=== PATIENT | male | born 1935 | race Caucasian/White ===

== ENCOUNTER 2019-08-05 14:33 | Emergency (ER) | payer MEDICARE, BC ==
--- NOTE | 2019-08-05 14:41 | EDM.PDOC ---
ED HPI GENERAL MEDICAL PROBLEM - General Chief Complaint: Lower Extremity Injury/Pain Stated Complaint: left hip pain, fall at home Time Seen by Provider: 08/05/19 14:35 Source of Information: Reports: Patient, EMS, EMS Notes Reviewed, Old Records ( [facility] chart/EMR), Other ([facility]) History Limitations: Reports: No Limitations - History of Present Illness INITIAL COMMENTS - FREE TEXT/NARRATIVE: The patient was brought to the emergency room via ambulance with EMT accompaniment with no treatment in route. Note that the patient is certain that he tripped over a cord in his home at about 11:30 a.m. this morning, however refused transfer to this facility until this time. He has not taken any medications or treatment to this point for his symptoms.. Patient complains of 10/10 left hip pain with movement, however 3/10 at rest. He denies any head injury, syncopal episode, seizure activity, neck/back pain, loss of consciousness, change in mental status, neurological deficits, or other complaints or injuries. The patient denies any chest pain/pressure, heart flutter, dizziness, orthostasis, orthopnea, diaphoresis, paresthesias, recent decreased exercise tolerance, or any other anginal-type symptoms. No recent history of abdominal pain, heartburn, nausea, diarrhea, melena, gross hematochezia, or any food intolerance, including fatty foods, etc.. The patient also denies any recent fever, cough, wheezing, dyspnea, etc.. Onset: Today, Sudden Onset Date: 08/05/19 Onset Time: 11:30 Duration: Constant Location: Reports: Lower Extremity, Left. Denies: Head, Face, Neck, Chest, Abdomen, Back, Pelvis, Upper Extremity, Left, Upper Extremity, Right, Lower Extremity, Right, Radiates to Quality: Reports: Same as Previous Episode, Sharp Severity: Severe Improves with: Reports: Rest Worsens with: Reports: Movement Context: Reports: Trauma (As above) Associated Symptoms: Denies: Confusion, Chest Pain, Cough, Diaphoresis, Fever/ Chills, Headaches, Loss of Appetite, Malaise, Nausea/Vomiting, Seizure, Shortness of Breath, Syncope, Weakness Treatments TIE CARRIER: Reports: Other (see below) (None) Left Hip Pain Score (Numeric/FACES): 10 (As above) - Related Data Allergies Allergy/AdvReac Type Severity Reaction Status Date / Time latex Allergy Itching Verified 08/05/19 14:47 Home Meds: Home Meds Atenolol [Tenormin] 50 mg PO DAILY 01/30/15 [History] Lisinopril [Prinivil] 5 mg PO DAILY 01/30/15 [History] Simvastatin [Zocor] 40 mg PO BEDTIME 01/30/15 [History] Apixaban [Eliquis] 5 mg PO BID 08/05/19 [History] Aspirin [Ecotrin EC] 81 mg PO DAILY 08/05/19 [History] Cholecalciferol (Vitamin D3) [Vitamin D3] 2,000 unit PO DAILY 08/05/19 [History] Cyanocobalamin (Vitamin B12) [Vitamin B12] 1,000 mcg PO DAILY 08/05/19 [History] Fluticasone Propionate [Flonase] 1 spray LUDWIG BID 08/05/19 [History] LORazepam [Lorazepam] 1 mg PO BEDTIME 08/05/19 [History] Metoprolol Succinate 50 mg PO DAILY 08/05/19 [History] Tadalafil [Cialis] 20 mg PO ASDIRECTED 08/05/19 [History] methIMAzole [Methimazole] 5 mg PO DAILY 08/05/19 [History] Past Medical History HEENT History: Reports: Cataract, Hard of Hearing, Impaired Vision, Other (See Below) Other HEENT History: He wears glasses. Bilateral presbycusis with hearing aid therapy. Cardiovascular History: Reports: Afib, Aneurysm, Arrhythmia, CAD, Heart Murmur, High Cholesterol, Hypertension, [place], PTCA, PVD, Stents, Other (See Below). Denies: Blood Clots/VTE/DVT, Cardiomyopathy, Heart Failure, Syncope Other Cardiovascular History: Complete right bundle branch block, PACs, PVCs, and recurrent atrial fibrillation. Stable by multiple serial exams as below of an infrarenal 3 cm abdominal aortic aneurysm. Moderate bilateral peripheral vascular disease including 5070 percent bilateral deep femoral artery stenosis and 5069% moderate left-sided carotid occlusive disease. Mild aortic valve stenosis by clinical exam. Respiratory History: Reports: COPD, Intubation, Previous. Denies: Intubation, Difficult, Pneumothorax Gastrointestinal History: Reports: Diverticulosis Genitourinary History: Reports: BPH, Other (See Below) Other Genitourinary History: Bilateral renal cysts. Musculoskeletal History: Reports: Arthritis, Fracture, Osteoarthritis, Other ( See Below) Other Musculoskeletal History: Right hip fracture 10/21/1995 requiring surgery as below. Right elbow cubital tunnel syndrome. 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 Psychiatric History: Reports: Anxiety, Depression Endocrine/Metabolic History: Reports: Hyperthyroidism, Multinodular Thyroid, Other (See Below) Other Endocrine/Metabolic History: Hyperthyroidism with current medical therapy. - Past Surgical History Head Surgeries/Procedures: Reports: None HEENT Surgical History: Reports: Cataract Surgery, Oral Surgery, Other (See Below) Other HEENT Surgeries/Procedures: Complete teeth extraction with dentures uppers and lowers. Bilateral cataract surgery. Cardiovascular Surgical History: Reports: Coronary Artery Bypass, Coronary Artery Stent, Percutaneous Transluminal Angioplasty, Other (See Below). Denies : AAA Repair, Pacer Other Cardiovascular Surgeries/Procedures: Electrocardioversion on 02/06/15. Three-vessel CABG on 04/16/17 using internal mammary arteries. Previous PTCA/ stent 2 in 1995. Respiratory Surgical History: Reports: Thoracentesis, Other (See Below) Other Respiratory Surgeries/Procedures: Left Sided thoracentesis on 06/08/17. GI Surgical History: Reports: Appendectomy Musculoskeletal Surgical History: Reports: ORIF, Other (See Below) Other Musculoskeletal Surgeries/Procedures:: Right-sided ORIF in October 1995. Bilateral total knee arthroplasty in 1995. - Past Imaging History Past Imaging History: Reports: NICK Screen (12/05/17 and 06/08/17), Angiography ( Heart catheterization on 04/13/17), Cardiac Echo (04/24/17 with ejection fraction of 60% with previous evaluation on 04/13/17), Carotid US (Multiple carotid artery Doppler study evaluations last on 12/13/18 with results as above.) , CAT Scan (CT of the brain on 02/01/15, 03/01/07, and 11/22/06. CTA of the abdomen and pelvis on 12/05/17, 03/06/17, 02/05/15 and 07/30/14.), Event Monitor ( 03/08/15), MRI (Thoracic spine with contrast on 06/07/15 and 06/01/15. MRI of the brain on 01/01/07.), PFT (04/13/17normal), Stress Testing (Cardiolite stress test on 03/08/17 with ejection fraction of 70%.), Ultrasound (Multiple abdominal aortic ultrasounds with stable aneurysm as above with last evaluation on 12/13/18. Abdominal ultrasound on 08/27/09.), Other (See Below) (Bilateral arterial Doppler evaluation of the legs on 12/05/17 with left leg evaluation on 04/13/17.) Social & Family History - Tobacco Use Smoking Status *Q: Former Smoker Tobacco Use Within Last Twelve Months: Cigarettes Years of Tobacco use: 40 Packs/Tins Daily: 2 Used Tobacco, but Quit: No Month/Year Tobacco Last Used: 10/21/95 Smoking Cessation Information Provided To Patient: Yes Second Hand Smoke Exposure: No Second Hand Smoke Education Provided: No - Living Situation & Occupation Living situation: Reports: , with Family () Review of Systems - Review of Systems Review Of Systems: Comprehensive ROS is negative, except as noted in HPI. ED EXAM, GENERAL - Physical Exam Exam: See Below Exam Limited By: No Limitations General Appearance: Alert, WD/WN, No Apparent Distress Eye Exam: Bilateral Eye: EOMI, Normal Inspection (No nystagmus. Patient wearing glasses), PERRL Ears: Normal External Exam, Normal Canal, Normal TMs, Hearing Loss (Severe bilateral presbycusis with the patient not having his hearing aids today.) Nose: Normal Inspection, Normal Mucosa, No Blood Throat/Mouth: Normal Lips, Normal Gums, Normal Oropharynx, Normal Voice, No Airway Compromise. No: Normal Teeth (Complete dentures uppers and lowers), Dysphagia, Inflammation Head: Atraumatic, Normocephalic. No: Facial Swelling, Facial Tenderness, Sinus Tenderness Neck: Supple, Non-Tender, Full Range of Motion, Carotid Bruit (Mild bilateral carotid bruits versus transmitted heart sounds). No: Lymphadenopathy (L), Lymphadenopathy (R), Thyromegaly Respiratory/Chest: No Respiratory Distress, Lungs Clear, Normal Breath Sounds, No Accessory Muscle Use, Chest Non-Tender. No: Pleural Rub, Retractions Cardiovascular: Normal Peripheral Pulses, No Edema, No Gallop, No JVD, No Rub, Tachycardia, Systolic Murmur (Mild 1/6 GUNNAR of the aortic valve), Irregularly Irregular. No: Gallop/S3, Gallop/S4, Friction Rub Peripheral Pulses: 1+: Dorsalis Pedis (L), Dorsalis Pedis (R), 2+: Radial (L), Radial (R) GI/Abdominal: Normal Bowel Sounds, Soft, Non-Tender, No Organomegaly, No Distention, No Abnormal Bruit, No Mass, Pelvis Stable. No: Guarding (Male) Exam: Deferred Rectal (Males) Exam: Deferred Back Exam: Normal Inspection, Full Range of Motion. No: CVA Tenderness (L), CVA Tenderness (R), Muscle Spasm Extremities: No Pedal Edema, Normal Capillary Refill, Leg Pain (Left hip), Limited Range of Motion (Secondary to hip fracture and left leg), Other ( External rotation of the left leg). No: Rain's Sign Neurological: Alert, Oriented, CN II-XII Intact, Normal Cognition, Normal Gait, Normal Reflexes (Negative Babinski's), No Motor/Sensory Deficits Psychiatric: Normal Affect, Normal Mood Skin Exam: Warm, Dry, Intact, Normal Color, No Rash. No: Diaphoretic, Ecchymosis, Petechiae, Wound/Incision Lymphatic: No Adenopathy EKG INTERPRETATION EKG Date: 08/05/19 Time: 15:19 Rhythm: A-Fib Rate (Beats/Min): 103 Copen: Normal (Neutral) P-Wave: Variable QRS: RBBB (0.13 seconds) ST-T: Other (T-wave inversion in leads V1 and V3 with previous T-wave inversions in leads V1V2, however lead placement was confirmed today.) QT: Normal CO/PQ Interval: Variable; possible pulmonary hypertension by EKG Comparison: Change From Previous EKG (As above since 04/24/17 with normal sinus rhythm and PACs during that evaluation) EKG Interpretation Comments: 1. Recurrent atrial fibrillation with mild rapid ventricular response 2. Complete right bundle branch block 3. Questionable anterior wall cardiac ischemia-stable 4. Pulmonary hypertension by EKG Course - Vital Signs Last Recorded V/S: Last Vital Signs Temp 37.1 C 08/05/19 15:30 Pulse 98 08/05/19 16:00 Resp 18 08/05/19 16:00 BP 95/62 08/05/19 16:00 Pulse Ox 100 08/05/19 16:00 Vital Signs - 24 hr 08/05/19 08/05/19 08/05/19 14:56 15:00 15:13 Temperature [ 36.8 C 36.8 C Temporal] Pulse, 99 Peripheral Pulse, 115 H 108 H Peripheral [ Right Pulse Oximetry] Respiratory 20 20 Rate Blood Pressure 150/94 H Blood Pressure 133/82 150/94 H [Right Upper Arm] O2 Sat by Pulse 97 97 Oximetry O2 Sat by Pulse 97 Oximetry [Room Air] 08/05/19 08/05/19 15:30 16:00 Temperature [ 37.1 C Temporal] Pulse, Peripheral Pulse, 106 H 98 Peripheral [ Right Pulse Oximetry] Respiratory 20 18 Rate Blood Pressure Blood Pressure 135/76 95/62 [Right Upper Arm] O2 Sat by Pulse 98 100 Oximetry O2 Sat by Pulse Oximetry [Room Air] - Orders/Labs/Meds Orders: Active Orders 24 hr Category Date Time Status Cardiac Monitoring [RC] . DIRECTED Care 08/05/19 14:41 Active EKG Documentation Completion [RC] ASDIRECTED Care 08/05/19 14:56 Active Oxygen Therapy, ED [RC] CONTINUOUS Care 08/05/19 14:56 Active Peripheral IV Care [RC] . DIRECTED Care 08/05/19 14:44 Active Pulse Oximetry [RC] CONTINUOUS Care 08/05/19 14:56 Active Up With Assistance [RC] PFP Care 08/05/19 14:56 Active Vital Signs [RC] PFP Care 08/05/19 14:56 Active Nothing per Oral Now Diet [DIET] Diet 08/05/19 Breakfast Active Chest 1V Frontal [CR] Stat Exams 08/05/19 14:56 Taken Pelvis 1V or 2V [CR] Stat Exams 08/05/19 14:58 Taken FREE T3 [REF] Routine Lab 08/05/19 15:00 Received Lactated Ringers [Ringers, Lactated] 1,000 ml Med 08/05/19 16:00 Active IV ASDIRECTED Sodium Chloride 0.9% [Saline Flush] Med 08/05/19 14:43 Active 10 ml FLUSH ASDIRECTED PRN Obtain Past Medical Record [OM.PC] Routine Oth 08/05/19 14:41 Active Obtain Past Medical Record [OM.PC] Urgent Oth 08/05/19 14:56 Active Peripheral IV Insertion Adult [OM.PC] Routine Oth 08/05/19 14:43 Ordered Resuscitation Status Stat Resus Stat 08/05/19 14:56 Ordered Medication Orders Lactated Ringer's (Ringers, Lactated) 1,000 mls @ 70 mls/hr IV ASDIRECTED MERARY Last Admin: 08/05/19 16:10 Dose: 70 mls/hr Sodium Chloride (Saline Flush) 10 ml FLUSH ASDIRECTED PRN PRN Reason: Keep Vein Open Last Admin: 08/05/19 15:24 Dose: 10 ml Admin: 08/05/19 15:19 Dose: 10 ml Admin: 08/05/19 15:13 Dose: 10 ml Labs: Laboratory Tests 08/05/19 08/05/19 08/05/19 Range/Units 15:00 15:00 15:00 WBC 8.6 (4.0-10.2) K/uL RBC 3.92 L (4.33-5.41) M/uL Hgb 13.0 L (13.1-16.8) g/dL Hct 38.6 L (39.0-49.0) % MCV 98.5 H D (84.0-98.0) fL MCH 33.2 (28.2-33.3) pg MCHC 33.7 (31.7-36.0) g/dL RDW 12.8 (11.2-14.1) % Plt Count 168 (150-350) K/uL Neut % (Auto) 87.2 H (45.0-80.0) % Lymph % (Auto) 7.8 L (10.0-50.0) % Stanley % (Auto) 4.8 (2.0-14.0) % Eos % (Auto) 0.1 (0.0-5.0) % Baso % (Auto) 0.1 (0.0-2.0) % Neut # (Auto) 7.48 H (1.40-7.00) K/uL Lymph # (Auto) 0.67 (0.50-3.50) K/uL Stanley # (Auto) 0.41 (0.00-1.00) K/uL Eos # (Auto) 0.01 (0.00-0.50) K/uL Baso # (Auto) 0.01 (0.00-0.20) K/uL PT 12.4 H (9.5-12.0) SEC INR 1.2 APTT 25.6 (24.5-32.8) SEC Sodium 140 (136-145) mmol/L Potassium 4.1 (3.5-5.1) mmol/L Chloride 103 (98-107) mmol/L Carbon Dioxide 25.3 (21.0-32.0) mmol/L BUN 24 H (7-18) mg/dL Creatinine 1.11 (0.51-1.17) mg/dL Est Cr Clr Drug Dosing 51.15 mL/min Estimated GFR (MDRD) > 60 mL/min Glucose 184 H (74-106) mg/dL Lactic Acid (0.4-2.0) mmol/L Uric Acid 6.1 (2.6-7.2) mg/dL Calcium 9.0 (8.5-10.1) mg/dL Magnesium 1.9 (1.8-2.4) mg/dL Total Bilirubin 1.7 H (0.2-1.0) mg/dL Direct Bilirubin (0.0-0.2) mg/dL Indirect Bilirubin AST 21 (15-37) U/L ALT 22 (12-78) U/L Alkaline Phosphatase 70 (46-116) IU/L Creatine Kinase 92 (26-308) U/L Creatine Kinase Index 1.7 (0.0-2.5) % CK-MB (CK-2) 1.60 (0.00-3.60) ng/mL Troponin I 0.009 (0.000-0.056) ng/mL NT-Pro-B Natriuret Pep 1608 H (0-125) pg/mL Total Protein 6.7 (6.4-8.2) g/dL Albumin 3.8 (3.4-5.0) g/dL Free T4 1.19 (0.76-1.46) ng/dL TSH, Ultra Sensitive 1.050 (0.358-3.740) mIU/mL 08/05/19 08/05/19 Range/Units 15:00 15:00 WBC (4.0-10.2) K/uL RBC (4.33-5.41) M/uL Hgb (13.1-16.8) g/dL Hct (39.0-49.0) % MCV (84.0-98.0) fL MCH (28.2-33.3) pg MCHC (31.7-36.0) g/dL RDW (11.2-14.1) % Plt Count (150-350) K/uL Neut % (Auto) (45.0-80.0) % Lymph % (Auto) (10.0-50.0) % Stanley % (Auto) (2.0-14.0) % Eos % (Auto) (0.0-5.0) % Baso % (Auto) (0.0-2.0) % Neut # (Auto) (1.40-7.00) K/uL Lymph # (Auto) (0.50-3.50) K/uL Stanley # (Auto) (0.00-1.00) K/uL Eos # (Auto) (0.00-0.50) K/uL Baso # (Auto) (0.00-0.20) K/uL PT (9.5-12.0) SEC INR APTT (24.5-32.8) SEC Sodium (136-145) mmol/L Potassium (3.5-5.1) mmol/L Chloride (98-107) mmol/L Carbon Dioxide (21.0-32.0) mmol/L BUN (7-18) mg/dL Creatinine (0.51-1.17) mg/dL Est Cr Clr Drug Dosing mL/min Estimated GFR (MDRD) mL/min Glucose (74-106) mg/dL Lactic Acid 2.4 H (0.4-2.0) mmol/L Uric Acid (2.6-7.2) mg/dL Calcium (8.5-10.1) mg/dL Magnesium (1.8-2.4) mg/dL Total Bilirubin 1.7 H (0.2-1.0) mg/dL Direct Bilirubin 0.3 H (0.0-0.2) mg/dL Indirect Bilirubin 1.4 AST (15-37) U/L ALT (12-78) U/L Alkaline Phosphatase (46-116) IU/L Creatine Kinase (26-308) U/L Creatine Kinase Index (0.0-2.5) % CK-MB (CK-2) (0.00-3.60) ng/mL Troponin I (0.000-0.056) ng/mL NT-Pro-B Natriuret Pep (0-125) pg/mL Total Protein (6.4-8.2) g/dL Albumin (3.4-5.0) g/dL Free T4 (0.76-1.46) ng/dL TSH, Ultra Sensitive (0.358-3.740) mIU/mL Meds: Medications Generic Name Dose Route Start Last Admin Trade Name Freq PRN Reason Stop Dose Admin Lactated Ringer's 1,000 mls @ 70 mls/hr 08/05/19 16:00 08/05/19 16:10 Ringers, Lactated IV 70 mls/hr ASDIRECTED MERARY Administration Sodium Chloride 10 ml 08/05/19 14:43 08/05/19 15:24 Saline Flush FLUSH 10 ml ASDIRECTED PRN Administration Keep Vein Open Discontinued Medications Generic Name Dose Route Start Last Admin Trade Name Freq PRN Reason Stop Dose Admin Famotidine 40 mg 08/05/19 14:56 08/05/19 15:18 Pepcid IVPUSH 08/05/19 14:57 40 mg ONETIME ONE Administration Hydromorphone HCl 1 mg 08/05/19 14:43 08/05/19 15:21 Dilaudid IVPUSH 08/05/19 14:44 1 mg ONETIME ONE Administration Metoclopramide HCl 10 mg 08/05/19 16:40 08/05/19 16:55 Reglan IVPUSH 08/05/19 16:41 10 mg ONETIME ONE Administration Metoprolol Tartrate 2.5 mg 08/05/19 14:56 08/05/19 15:13 Lopressor IVPUSH 08/05/19 14:57 2.5 mg ONETIME ONE Administration Ondansetron HCl 4 mg 08/05/19 14:43 08/05/19 15:24 Zofran IVPUSH 08/05/19 14:44 4 mg ONETIME ONE Administration Ondansetron HCl 4 mg 08/05/19 16:10 08/05/19 16:15 Zofran IVPUSH 08/05/19 16:11 4 mg ONETIME ONE Administration - Radiology Interpretation Free Text/Narrative:: library monitor shows atrial fibrillation with heart rate ranging in the 90s to 120s with occasional PVCs. Note brief episode of nonsymptomatic tachycardia in the 140s-150s at time of emesis in the emergency room shortly prior to transfer. Chest X-ray, portable, shows moderate COPD changes with mild calcification of the aortic valve however no pulmonary infiltrates, pneumothorax, CHF, etc. X-ray of the pelvis, one view, shows a 90 angulated femoral comminuted neck fracture with stable ORIF of the right hip by limited view. X-ray reports received prior to patient's transfer and are in agreement with the above findings. Departure - Departure Time of Disposition: 17:05 Disposition: DC/Tfer to Acute Hospital 02 Condition: Fair Clinical Impression: Fracture of neck of femur, hip, Hyperthyroidism, Hyperbilirubinemia, Peripheral vascular disease CAD (coronary artery disease) Qualifiers: Coronary Disease-Associated Artery/Lesion type: bypass graft, autologous artery Associated angina: without angina Qualified Code(s): I25.810 - Atherosclerosis of coronary artery bypass graft(s) without angina pectoris Atrial fibrillation Qualifiers: Atrial fibrillation type: longstanding persistent Qualified Code(s): I48.11 - Longstanding persistent atrial fibrillation Hyperlipidemia Qualifiers: Hyperlipidemia type: unspecified Qualified Code(s): E78.5 - Hyperlipidemia, unspecified Osteoarthritis Qualifiers: Osteoarthritis location: multiple joints Osteoarthritis type: primary Qualified Code(s): 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 disease) Qualifiers: COPD type: emphysema Emphysema type: panlobular Qualified Code(s): J43.1 - Panlobular emphysema Hypertension Qualifiers: Hypertension type: essential hypertension Qualified Code(s): I10 - Essential ( primary) hypertension - Discharge Information *PRESCRIPTION DRUG MONITORING PROGRAM REVIEWED*: Not Applicable *COPY OF PRESCRIPTION DRUG MONITORING REPORT IN PATIENT AMNA: Not Applicable Referrals: Aislinn Murillo NP [Primary Care Provider] - Forms: ED Department Discharge, Interfacility Transfer EMTALA Sepsis Event Note - Focused Exam Vital Signs: Vital Signs Temp Pulse Pulse Resp BP BP Pulse Ox 08/05/19 16:00 98 18 95/62 100 08/05/19 15:30 37.1 C 106 H 20 135/76 98 08/05/19 15:13 99 150/94 H 03/24/20 15:00 36.8 C 108 H 20 150/94 H 97 08/05/19 14:56 36.8 C 115 H 20 133/82 97 Pulse Ox 08/05/19 16:00 08/05/19 15:30 08/05/19 15:13 08/05/19 15:00 08/05/19 14:56 97 Date Exam was Performed: 08/05/19 Time Exam was Performed: 16:56 - Problem List & Annotations (1) Fracture of neck of femur, hip SNOMED Code(s): 7493613 Code(s): S72.009A - FRACTURE OF UNSP PART OF NECK OF UNSP FEMUR, INIT Status: Acute Priority: High Current Visit: Yes Onset Date: 08/05/19 Annotation/Comment:: Telephone consultation at 14:[address] Johnson, hospitalist at [facility], who does agree to accept the patient for direct admission, treatment, and orthopedic consultation, with no further treatment recommendations given. Note current Eliquis therapy. IV Dilaudid was given for pain control with additional IV Zofran and IV Pepcid as GI prophylaxis. Patient did have recurrent emesis in the emergency room from his IV Dilaudid despite an additional dose of IV Zofran with additional IV Reglan given prior to discharge. No abdominal pain or other complaints. (2) Atrial fibrillation SNOMED Code(s): 66670490 Code(s): I48.91 - UNSPECIFIED ATRIAL FIBRILLATION Status: Chronic Priority: High Current Visit: Yes Annotation/Comment:: Patient initially denied previous history of atrial fibrillation, however review of medical records showed that this is a chronic condition. Note current Eliquis therapy. No chest pain or anginal type symptoms. Moderate tachycardia initially with low- dose IV Lopressor given in the emergency room with overall good results. Note some elevation of his BNP, however no clinical evidence of significant CHF either by physical exam and/or today's chest x-ray. Qualifiers: Atrial fibrillation type: longstanding persistent Qualified Code(s): I48.11 - Longstanding persistent atrial fibrillation (3) CAD (coronary artery disease) SNOMED Code(s): 51925830 Code(s): I25.10 - ATHSCL HEART DISEASE OF [place] CORONARY ARTERY W/O ANG PCTRS Status: Chronic Priority: Medium Current Visit: Yes Annotation/ Comment:: Note status post CABG and PTCA/stent as above. No anginal complaints as above. Note mild change in troponin I, which is still normal, secondary to his borderline CHF. Complete right bundle branch block makes it difficult to assess possible anterior wall cardiac ischemia. Cardiology consultation depending on his clinical course. Qualifiers: Coronary Disease-Associated Artery/Lesion type: bypass graft, autologous artery Associated angina: without angina Qualified Code(s): I25.810 - Atherosclerosis of coronary artery bypass graft(s) without angina pectoris (4) COPD (chronic obstructive pulmonary disease) SNOMED Code(s): 64386336 Code(s): J44.9 - CHRONIC OBSTRUCTIVE PULMONARY DISEASE, UNSPECIFIED Status : Chronic Priority: Medium Current Visit: Yes Annotation/Comment:: No recent fever or bronchitic type symptoms. 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 (6) Hyperlipidemia SNOMED Code(s): 10641195 Code(s): E78.5 - HYPERLIPIDEMIA, UNSPECIFIED Status: Chronic Priority: Medium Current Visit: Yes Annotation/Comment:: Under therapy Qualifiers: Hyperlipidemia type: unspecified Qualified Code(s): E78.5 - Hyperlipidemia , unspecified (7) Hyperthyroidism SNOMED Code(s): 11008412 Code(s): E05.90 - THYROTOXICOSIS, UNSP WITHOUT THYROTOXIC CRISIS OR STORM Status: Chronic Priority: Medium Current Visit: Yes Annotation/Comment:: Currently under therapy with free T3 and free T4 also collected during today's evaluation (8) Osteoarthritis SNOMED Code(s): 905871979 Code(s): M19.90 - UNSPECIFIED OSTEOARTHRITIS, UNSPECIFIED SITE Status: Chronic Priority: Medium Current Visit: Yes Annotation/Comment:: Stable by history with no other injuries from his fall today. Qualifiers: Osteoarthritis location: multiple joints Osteoarthritis type: primary Qualified Code(s): M15.0 - Primary generalized (osteo)arthritis (9) Peripheral vascular disease SNOMED Code(s): 629489363 Code(s): I73.9 - PERIPHERAL VASCULAR DISEASE, UNSPECIFIED Status: Chronic Priority: Medium Current Visit: Yes Annotation/Comment:: As above. Note current Eliquis therapy with previous history of distant CVA with no neurological deficits today. (10) Hypertension SNOMED Code(s): 87126795 Code(s): I10 - ESSENTIAL (PRIMARY) HYPERTENSION Status: Chronic Priority : Medium Current Visit: Yes Annotation/Comment:: Some mild hypotension in the emergency room possibly secondary to his IV Dilaudid, emesis, and atrial fibrillation. IV fluids initiated in the emergency room with caution secondary to his borderline CHF as above. Physical exam, vital signs, etc. stable at time of transfer. Qualifiers: Hypertension type: essential hypertension Qualified Code(s): I10 - Essential (primary) hypertension - Problem List Review Problem List Initiated/Reviewed/Updated: Yes - My Orders Last 24 Hours: My Active Orders 08/05/19 14:41 Cardiac Monitoring [RC] . DIRECTED Obtain Past Medical Record [OM.PC] Routine 08/05/19 14:43 Sodium Chloride 0.9% [Saline Flush] 10 ml FLUSH ASDIRECTED PRN Peripheral IV Insertion Adult [OM.PC] Routine 08/05/19 14:44 Peripheral IV Care [RC] . DIRECTED 08/05/19 14:56 EKG Documentation Completion [RC] ASDIRECTED Oxygen Therapy, ED [RC] CONTINUOUS Pulse Oximetry [RC] CONTINUOUS Up With Assistance [RC] PFP Vital Signs [RC] PFP Chest 1V Frontal [CR] Stat Obtain Past Medical Record [OM.PC] Urgent Resuscitation Status Stat 08/05/19 14:58 Pelvis 1V or 2V [CR] Stat 08/05/19 15:00 FREE T3 [REF] Routine 08/05/19 16:00 Lactated Ringers [Ringers, Lactated] 1,000 ml IV ASDIRECTED 08/05/19 Breakfast Nothing per Oral Now Diet [DIET] - Assessment/Plan Last 24 Hours: My Active Orders 08/05/19 14:41 Cardiac Monitoring [RC] . DIRECTED Obtain Past Medical Record [OM.PC] Routine 08/05/19 14:43 Sodium Chloride 0.9% [Saline Flush] 10 ml FLUSH ASDIRECTED PRN Peripheral IV Insertion Adult [OM.PC] Routine 08/05/19 14:44 Peripheral IV Care [RC] . DIRECTED 08/05/19 14:56 EKG Documentation Completion [RC] ASDIRECTED Oxygen Therapy, ED [RC] CONTINUOUS Pulse Oximetry [RC] CONTINUOUS Up With Assistance [RC] PFP Vital Signs [RC] PFP Chest 1V Frontal [CR] Stat Obtain Past Medical Record [OM.PC] Urgent Resuscitation Status Stat 08/05/19 14:58 Pelvis 1V or 2V [CR] Stat 08/05/19 15:00 FREE T3 [REF] Routine 08/05/19 16:00 Lactated Ringers [Ringers, Lactated] 1,000 ml IV ASDIRECTED 08/05/19 Breakfast Nothing per Oral Now Diet [DIET] Assessment:: As above Plan: As above. Extensive precautions were given to the patient, who is in agreement with the treatment plan. Ambulance transfer to [facility] as above.
[2019-08-05] MEDS ORDERED: HYDROmorphone 1 MG/ML Syringe IVPUSH ONE (14:43)
[2019-08-05] MEDS ORDERED: Ondansetron 4 MG/2 ML SDV IVPUSH ONE ×2 (14:43→16:10)
[2019-08-05] MEDS ORDERED: Famotidine 20 MG/2 ML SDV IVPUSH ONE (14:56)
[2019-08-05] MEDS ORDERED: Metoprolol Tartrate 5 MG/5 ML SDV IVPUSH ONE (14:56)
[2019-08-05] MEDS: Sodium Chloride 0.9% 10 ML Syringe FLUSH PRN ×3 (15:13→15:24)
[2019-08-05 15:26] LABS: PTT,PARTIAL THROMBOPLSTIN TIME 25.6 SEC (24.5-32.8)
[2019-08-05 15:36] LABS: CHLORIDE,CL 103 mmol/L (98-107); SODIUM,NA 140 mmol/L (136-145)
[2019-08-05] MEDS ORDERED: Lactated Ringers 1,000 ML IV SCH (16:00)
[2019-08-05 16:36] VITALS: BP 95/62; PULSE 98
[2019-08-05] MEDS ORDERED: Metoclopramide 10 MG/2 ML SDV IVPUSH ONE (16:40)
== END 2019-08-05 17:05 ==
LOC: LL.ED 14:33
DX: S72.142A Displaced intertrochanteric fracture of left femur, initial encounter for closed fracture (principal); E05.90 Thyrotoxicosis, unspecified without thyrotoxic crisis or storm; E80.6 Other disorders of bilirubin metabolism; I73.9 Peripheral vascular disease, unspecified; I25.810 Atherosclerosis of coronary artery bypass graft(s) without angina pectoris; I48.11 Longstanding persistent atrial fibrillation; E78.5 Hyperlipidemia, unspecified; M89.49 Other hypertrophic osteoarthropathy, multiple sites; J43.1 Panlobular emphysema; I10 Essential (primary) hypertension; F41.9 Anxiety disorder, unspecified; F32.9 Major depressive disorder, single episode, unspecified; Z87.891 Personal history of nicotine dependence; Z91.040 Latex allergy status; Z79.82 Long term (current) use of aspirin; Z79.01 Long term (current) use of anticoagulants; Z79.899 Other long term (current) drug therapy; W01.0XXA Fall on same level from slipping, tripping and stumbling without subsequent striking against object, initial encounter; Y92.009 Unspecified place in unspecified non-institutional (private) residence as the place of occurrence of the external cause
CPT/HCPCS: 36415; 71045; 72170; 80053; 82247; 82248; 82550; 82553; 83605; 83735; 83880; 84439; 84443; 84481; 84484; 84550; 85025; 85610; 85730; 93005; 96361; 96374; 96375; 96376; 99285; J1170; J2405; J2765; J3490; J7120

== ENCOUNTER 2019-08-08 16:26 | Inpatient (IN) | payer MEDICARE, BC ==
[2019-08-09] MEDS ORDERED: Sennosides 8.6 MG Tab PO PRN (14:52)
--- NOTE | 2019-08-09 15:10 | PCM.HP.2 ---
H&P History of Present Illness - General Date of Service: 08/09/19 Admit Problem/Dx: Admission Diagnosis/Problem Admission Diagnosis/Problem Intertrochanteric fracture, hip Source of Information: Patient History Limitations: Reports: No Limitations - History of Present Illness Initial Comments - Free Text/Narative: Patient admitted to [facility] for PT and OT after sustaining left sided intertrochanteric hip fracture last week that required surgical intervention. Discharged today from [facility]. ROS reveals anticipated stiffness and discomfort left hip s/p repair. Slowly improving per patient. Complains of reflux at night that is long standing. No other acute pain complaints. No acute changes HEENT/Resp/CV/GI/ otherwise. No focal neuro changes. No fevers/chills/respiratory complaints. - Related Data Allergies/Adverse Reactions: Allergies Allergy/AdvReac Type Severity Reaction Status Date / Time latex Allergy Itching Verified 08/09/19 13:31 Home Medications: Home Meds Simvastatin [Zocor] 40 mg PO BEDTIME 01/30/15 [History] Apixaban [Eliquis] 5 mg PO BID 08/05/19 [History] Aspirin [Ecotrin EC] 81 mg PO DAILY 08/05/19 [History] Cholecalciferol (Vitamin D3) [Vitamin D3] 2,000 unit PO DAILY 08/05/19 [History] Cyanocobalamin (Vitamin B12) [Vitamin B12] 1,000 mcg PO DAILY 08/05/19 [History] Fluticasone Propionate [Flonase] 1 spray LUDWIG BID 08/05/19 [History] LORazepam [Lorazepam] 1 mg PO BEDTIME 08/05/19 [History] Metoprolol Succinate 50 mg PO DAILY 08/05/19 [History] methIMAzole [Methimazole] 5 mg PO DAILY 08/05/19 [History] Acetaminophen 650 mg PO Q4HR PRN 08/09/19 [History] Calcium Citrate/Vitamin D3 [Calcium Cit 315-Vit D3 250 Tab] 1 each PO BIDMEALS 08/09/19 [History] Digoxin 125 mcg PO DAILY 08/09/19 [History] oxyCODONE HCl/Acetaminophen [Oxycodone-Acetaminophen 5-325] 1 each PO Q4HR PRN 08/09/19 [History] Past Medical History HEENT History: Reports: Cataract, Hard of Hearing, Impaired Vision, Other (See Below) Other HEENT History: He wears glasses. Bilateral presbycusis with hearing aid therapy. Cardiovascular History: Reports: Afib, Aneurysm, Arrhythmia, CAD, Heart Murmur, High Cholesterol, Hypertension, [place], PTCA, PVD, Stents, Other (See Below) Other Cardiovascular History: Complete right bundle branch block, PACs, PVCs, and recurrent atrial fibrillation. Stable by multiple serial exams as below of an infrarenal 3 cm abdominal aortic aneurysm. Moderate bilateral peripheral vascular disease including 5070 percent bilateral deep femoral artery stenosis and 5069% moderate left-sided carotid occlusive disease. Mild aortic valve stenosis by clinical exam. Respiratory History: Reports: COPD, Intubation, Previous Gastrointestinal History: Reports: Diverticulosis Other Gastrointestinal History: appendectomy Genitourinary History: Reports: BPH, Other (See Below) Other Genitourinary History: Bilateral renal cysts. Musculoskeletal History: Reports: Arthritis, Fracture, Osteoarthritis, Other ( See Below) Other Musculoskeletal History: Right hip fracture 10/21/1995 requiring surgery as below. Right elbow cubital tunnel syndrome. 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 Psychiatric History: Reports: Anxiety, Depression Endocrine/Metabolic History: Reports: Hyperthyroidism, Multinodular Thyroid, Other (See Below) Other Endocrine/Metabolic History: Hyperthyroidism with current medical therapy. - Past Surgical History Head Surgeries/Procedures: Reports: None HEENT Surgical History: Reports: Cataract Surgery, Oral Surgery, Other (See Below) Other HEENT Surgeries/Procedures: Complete teeth extraction with dentures uppers and lowers. Bilateral cataract surgery. Cardiovascular Surgical History: Reports: Coronary Artery Bypass, Coronary Artery Stent, Percutaneous Transluminal Angioplasty, Other (See Below) Other Cardiovascular Surgeries/Procedures: Electrocardioversion on 02/06/15. Three-vessel CABG on 04/16/17 using internal mammary arteries. Previous PTCA/ stent 2 in 1995. Respiratory Surgical History: Reports: Thoracentesis, Other (See Below) Other Respiratory Surgeries/Procedures: Left Sided thoracentesis on 06/08/17. GI Surgical History: Reports: Appendectomy Musculoskeletal Surgical History: Reports: Knee Replacement, ORIF, Other (See Below) Other Musculoskeletal Surgeries/Procedures:: Right-sided ORIF in October 1995. Left sided July 2019. Bilateral total knee arthroplasty in 1995. - Past Imaging History Past Imaging History: Reports: NICK Screen (12/05/17 and 06/08/17), Angiography ( Heart catheterization on 04/13/17), Cardiac Echo (04/24/17 with ejection fraction of 60% with previous evaluation on 04/13/17), Carotid US (Multiple carotid artery Doppler study evaluations last on 12/13/18 with results as above.) , CAT Scan (CT of the brain on 02/01/15, 03/01/07, and 11/22/06. CTA of the abdomen and pelvis on 12/05/17, 03/06/17, 02/05/15 and 07/30/14.), Event Monitor ( 03/08/15), MRI (Thoracic spine with contrast on 06/07/15 and 06/01/15. MRI of the brain on 01/01/07.), PFT (04/13/17normal), Stress Testing (Cardiolite stress test on 03/08/17 with ejection fraction of 70%.), Ultrasound (Multiple abdominal aortic ultrasounds with stable aneurysm as above with last evaluation on 12/13/18. Abdominal ultrasound on 08/27/09.), Other (See Below) (Bilateral arterial Doppler evaluation of the legs on 12/05/17 with left leg evaluation on 04/13/17.) Social & Family History - Tobacco Use Smoking Status *Q: Former Smoker Years of Tobacco use: 20 Packs/Tins Daily: 1 Used Tobacco, but Quit: Yes Month/Year Tobacco Last Used: 25 yrs ago Second Hand Smoke Exposure: No - Caffeine Use Caffeine Use: Reports: Soda - Alcohol Use Alcohol Use History: Yes Alcohol Use Frequency: Rarely - Recreational Drug Use Recreational Drug Use: No - Living Situation & Occupation Living situation: Reports: , with Family () H&P Review of Systems - Review of Systems: Review Of Systems: Comprehensive ROS is negative, except as noted in HPI. Exam - Exam Exam: See Below - Vital Signs Vital Signs: Last Vital Signs Temp 36.9 C 08/09/19 13:15 Pulse 107 H 08/09/19 13:15 Resp 18 08/09/19 13:15 BP 149/93 H 08/09/19 13:15 Pulse Ox 100 08/09/19 13:15 Weight: 80.377 kg - Exam General: Alert, Oriented, Cooperative HEENT: Conjunctiva Clear, EACs Clear, EOMI, Hearing Intact, Mucosa Moist & [place] , Pupils Equal, Pupils Reactive, PERRLA Neck: Supple, Trachea Midline Lungs: Normal Respiratory Effort, Rales (faint, only at bases bilaterally) Cardiovascular: Regular Rate, Regular Rhythm, Systolic Murmur GI/Abdominal Exam: Normal Bowel Sounds, Soft, Non-Tender, No Distention (Male) Exam: Deferred Rectal (Males) Exam: Deferred Back Exam: No: CVA Tenderness (L), CVA Tenderness (R), Muscle Spasm, Paraspinal Tenderness, Vertebral Tenderness Extremities: No Pedal Edema, Normal Capillary Refill, Other (Has tenderness over prox left leg in area of fracture and repair. Limbs otherwise nontender. ) . No: Rain's Sign, Increased Warmth, Mottled, Pallor, Redness Peripheral Pulses: 2+: Radial (L), Radial (R) Skin: Warm, Dry, Other (dressing over surgical site left in place) Neurological: Strength Equal Bilateral, Normal Tone Neuro Extensive - Mental Status: Alert, Oriented x3, Normal Mood/Affect, Normal Cognition, Memory Intact Sepsis Event Note - Focused Exam Vital Signs: Vital Signs Temp Pulse Resp BP Pulse Ox 08/09/19 13:15 36.9 C 107 H 18 149/93 H 100 Date Exam was Performed: 08/09/19 Time Exam was Performed: 15:05 - Problem List (1) S/P ORIF (open reduction internal fixation) fracture SNOMED Code(s): 942235514 ICD Code: Z98.890 - OTHER SPECIFIED POSTPROCEDURAL STATES; Z87.81 - PERSONAL HISTORY OF (HEALED) TRAUMATIC FRACTURE Status: Acute Priority: High Current Visit: Yes Onset Date: ~08/05/19 Problem Details: Recent ORIF. Here for [facility] care and PT/OT (2) Restless leg syndrome SNOMED Code(s): 61441717 ICD Code: G25.81 - RESTLESS LEGS SYNDROME Status: Chronic Priority: Low Current Visit: No Problem Details: Stable per history (3) Atrial fibrillation SNOMED Code(s): 26072541 ICD Code: I48.91 - UNSPECIFIED ATRIAL FIBRILLATION Status: Chronic Priority: Low Current Visit: No Problem Details: Stable per history Qualifiers: Atrial fibrillation type: longstanding persistent Qualified Code(s): I48.11 - Longstanding persistent atrial fibrillation (4) CAD (coronary artery disease) SNOMED Code(s): 01288847 ICD Code: I25.10 - ATHSCL HEART DISEASE OF [place] CORONARY ARTERY W/O ANG PCTRS Status: Chronic Priority: Medium Current Visit: No Problem Details : Note status post CABG and PTCA/stent. Qualifiers: Coronary Disease-Associated Artery/Lesion type: bypass graft, autologous artery Associated angina: without angina Qualified Code(s): I25.810 - Atherosclerosis of coronary artery bypass graft(s) without angina pectoris (5) Hyperlipidemia SNOMED Code(s): 00364499 ICD Code: E78.5 - HYPERLIPIDEMIA, UNSPECIFIED Status: Chronic Priority: Medium Current Visit: No Problem Details: Under therapy Qualifiers: Hyperlipidemia type: unspecified Qualified Code(s): E78.5 - Hyperlipidemia , unspecified (6) Hypertension SNOMED Code(s): 12421580 ICD Code: I10 - ESSENTIAL (PRIMARY) HYPERTENSION Status: Chronic Priority : Medium Current Visit: No Problem Details: Observe trends. Qualifiers: Hypertension type: essential hypertension Qualified Code(s): I10 - Essential (primary) hypertension (7) Hyperthyroidism SNOMED Code(s): 63632477 ICD Code: E05.90 - THYROTOXICOSIS, UNSP WITHOUT THYROTOXIC CRISIS OR STORM Status: Chronic Priority: Medium Current Visit: No Problem Details: Currently under therapy. Close follow up with primary providers after discharge. (8) Osteoarthritis SNOMED Code(s): 787615553 ICD Code: M19.90 - UNSPECIFIED OSTEOARTHRITIS, UNSPECIFIED SITE Status: Chronic Priority: Medium Current Visit: No Problem Details: Stable by history with no other injuries from his fall. Qualifiers: Osteoarthritis location: multiple joints Osteoarthritis type: primary Qualified Code(s): M15.0 - Primary generalized (osteo)arthritis (9) Peripheral vascular disease SNOMED Code(s): 388596948 ICD Code: I73.9 - PERIPHERAL VASCULAR DISEASE, UNSPECIFIED Status: Chronic Priority: Medium Current Visit: No Problem Details: As above. Note current Eliquis therapy with previous history of distant CVA. Updated US studies performed at [facility] and are available for review in transfer packet in patient's chart. (10) History of CVA (cerebrovascular accident) SNOMED Code(s): 069516389 ICD Code: Z86.73 - PRSNL HX OF TIA (TIA), AND CEREB INFRC W/O RESID DEFICITS Status: Chronic Priority: Low Current Visit: No Problem Details: Stable per history (11) AAA (abdominal aortic aneurysm) SNOMED Code(s): 258114690 ICD Code: I71.4 - ABDOMINAL AORTIC ANEURYSM, WITHOUT RUPTURE Status: Acute Current Visit: Yes Problem List Initiated/Reviewed/Updated: Yes Orders Last 24hrs: Active Orders 24 hr Category Date Time Status Patient Status [ADT] Routine ADT 08/09/19 14:52 Ordered May Shower [RC] ASDIRECTED Care 08/09/19 14:52 Ordered Oxygen Therapy [RC] PRN Care 08/09/19 14:52 Ordered Pulse Oximetry [RC] PRN Care 08/09/19 14:56 Ordered Up With Assistance [RC] ASDIRECTED Care 08/09/19 14:52 Ordered VTE/DVT Education [RC] PER UNIT ROUTINE Care 08/09/19 14:52 Ordered Vital Signs [RC] QSHIFT Care 08/09/19 14:52 Ordered OT Evaluation and Treatment [CONS] Routine Cons 08/09/19 14:52 Ordered PT Evaluation and Treatment [CONS] Routine Cons 08/09/19 14:52 Ordered Heart Healthy Diet [DIET] Diet 08/09/19 Dinner Ordered Acetaminophen [Tylenol] Med 08/09/19 14:58 Ordered 650 mg PO Q4HR PRN Acetaminophen/oxyCODONE [Percocet 325-5 MG] Med 08/09/19 14:58 Ordered 1 each PO Q4HR PRN Apixaban [Eliquis] Med 08/09/19 18:00 Ordered 5 mg PO BID Aspirin [Halfprin] Med 08/10/19 08:00 Ordered 81 mg PO DAILY Calcium Citrate/Vitamin D3 [Calcium Cit 315-Vit D3 250 Med 08/09/19 17:30 Ordered Tab] 1 each PO BIDMEALS Cholecalciferol (Vitamin D3) [Vitamin D3] Med 08/10/19 08:00 Ordered 2,000 unit PO DAILY Cyanocobalamin (Vitamin B12) [Vitamin B12] Med 08/10/19 08:00 Ordered 1,000 mcg PO DAILY Digoxin [Lanoxin] Med 08/10/19 08:00 Ordered 125 mcg PO DAILY Fluticasone Propionate [Flonase] Med 08/09/19 18:00 Ordered 1 spray LUDWIG BID LORazepam [Ativan] Med 08/09/19 20:00 Ordered 1 mg PO BEDTIME Metoprolol Succinate [Toprol XL] Med 08/10/19 08:00 Ordered 50 mg PO DAILY Ondansetron [Zofran ODT] Med 08/09/19 14:52 Ordered 4 mg PO Q6H PRN Sennosides [Senna] Med 08/09/19 14:52 Ordered 1 mg PO BID PRN Simvastatin [Zocor] Med 08/09/19 20:00 Ordered 40 mg PO BEDTIME Ubidecarenone [Coenzyme Q10] Med 08/10/19 08:00 Ordered 100 mg PO DAILY bisacodyL [Dulcolax] Med 08/09/19 14:52 Ordered 5 mg PO DAILY PRN methIMAzole [Methimazole] Med 08/10/19 08:00 Ordered 5 mg PO DAILY Resuscitation Status Routine Resus Stat 08/09/19 14:52 Ordered Medication Orders Acetaminophen (Tylenol) 650 mg PO Q4HR PRN PRN Reason: Pain (mild 1-3) Apixaban (Eliquis) 5 mg PO BID MERARY Aspirin (Halfprin) 81 mg PO DAILY MERARY Bisacodyl (Dulcolax) 5 mg PO DAILY PRN PRN Reason: Constipation Coenzyme Q10 (Coenzyme Q10) 100 mg PO DAILY MERARY Cyanocobalamin (Vitamin B12) 1,000 mcg PO DAILY MER[facility] Digoxin (Lanoxin) 125 mcg PO DAILY MER[facility] Fluticasone Propionate (Flonase) gm LUDWIG BID MERARY Lorazepam (Ativan) 1 mg PO BEDTIME MERARY Metoprolol Succinate (Toprol Xl) 50 mg PO DAILY [facility]ARY Non-Formulary Medication (Calcium Citrate/Vitamin D3 [Calcium Cit 315-Vit D3 250 Tab]) 1 each PO BIDMEALS MER[facility] Non-Formulary Medication (Cholecalciferol (Vitamin D3) [Vitamin D3]) 2,000 unit PO DAILY MER[facility] Non-Formulary Medication (Methimazole [Methimazole]) 5 mg PO DAILY [facility] Non-Formulary Medication (Simvastatin [Zocor]) 40 mg PO BEDTIME MERARY Ondansetron HCl (Zofran Odt) 4 mg PO Q6H PRN PRN Reason: Nausea/Vomiting Oxycodone/Acetaminophen (Percocet 325-5 Mg) tab PO Q4HR PRN PRN Reason: Pain (severe 7-10) Senna (Senna) 1 mg PO BID PRN PRN Reason: Constipation Assessment/Plan Comment:: As above - Mortality Measure Prognosis:: Good
[2019-08-09] MEDS: Calcium Carbonate/Vitamin D3 625 MG-125 Unit Tab PO SCH (17:08)
[2019-08-09] MEDS: Apixaban 5 MG Tab PO SCH (17:08)
[2019-08-09] MEDS: Fluticasone Propionate Nasal Spray 16 GM Bottle NASBOTH SCH (17:09)
[2019-08-09] MEDS: Ondansetron 4 MG Tab.DIS PO PRN (17:14)
[2019-08-09] MEDS: LORazepam 1 MG Tab PO SCH (19:48)
[2019-08-09] MEDS: Simvastatin 20 MG Tab PO SCH (19:48)
[2019-08-10] MEDS: Apixaban 5 MG Tab PO SCH ×2 (08:57→17:13)
[2019-08-10] MEDS: Calcium Carbonate/Vitamin D3 625 MG-125 Unit Tab PO SCH ×2 (08:57→17:13)
[2019-08-10] MEDS: Metoprolol Succinate 50 MG Tab.ER PO SCH (08:58)
[2019-08-10] MEDS: Aspirin 81 MG Tab.EC PO SCH (08:58)
[2019-08-10] MEDS: Methimazole 10 MG Tab PO SCH (08:58)
[2019-08-10] MEDS: Fluticasone Propionate Nasal Spray 16 GM Bottle NASBOTH SCH ×3 (08:58→19:23)
[2019-08-10] MEDS: Cyanocobalamin (Vitamin B12) 1,000 MCG Tab PO SCH (08:59)
[2019-08-10] MEDS: Acetaminophen/oxyCODONE 325-5 MG Tab PO PRN ×3 (08:59→19:22)
[2019-08-10] MEDS: Digoxin 125 MCG Tab PO SCH (08:59)
[2019-08-10] MEDS: Cholecalciferol (Vitamin D3) 25 MCG Tab PO SCH (09:01)
[2019-08-10] MEDS: Simvastatin 20 MG Tab PO SCH (19:19)
[2019-08-10] MEDS: LORazepam 1 MG Tab PO SCH (19:19)
[2019-08-11] MEDS: Acetaminophen/oxyCODONE 325-5 MG Tab PO PRN ×4 (07:59→20:46)
[2019-08-11] MEDS: Metoprolol Succinate 50 MG Tab.ER PO SCH (08:00)
[2019-08-11] MEDS: Digoxin 125 MCG Tab PO SCH (08:01)
[2019-08-11] MEDS: Aspirin 81 MG Tab.EC PO SCH (08:01)
[2019-08-11] MEDS: Calcium Carbonate/Vitamin D3 625 MG-125 Unit Tab PO SCH ×2 (08:01→16:32)
[2019-08-11] MEDS: Apixaban 5 MG Tab PO SCH ×2 (08:01→17:42)
[2019-08-11] MEDS: Cyanocobalamin (Vitamin B12) 1,000 MCG Tab PO SCH (08:01)
[2019-08-11] MEDS: Fluticasone Propionate Nasal Spray 16 GM Bottle NASBOTH SCH ×2 (08:02→20:47)
[2019-08-11] MEDS: Cholecalciferol (Vitamin D3) 25 MCG Tab PO SCH (08:02)
[2019-08-11] MEDS: Methimazole 10 MG Tab PO SCH (08:02)
[2019-08-11] MEDS: Simvastatin 20 MG Tab PO SCH (20:47)
[2019-08-11] MEDS: LORazepam 1 MG Tab PO SCH (20:47)
[2019-08-12] MEDS: Fluticasone Propionate Nasal Spray 16 GM Bottle NASBOTH SCH ×2 (07:50→19:38)
[2019-08-12] MEDS: Cholecalciferol (Vitamin D3) 25 MCG Tab PO SCH (07:50)
[2019-08-12] MEDS: Aspirin 81 MG Tab.EC PO SCH (07:51)
[2019-08-12] MEDS: Cyanocobalamin (Vitamin B12) 1,000 MCG Tab PO SCH (07:51)
[2019-08-12] MEDS: Apixaban 5 MG Tab PO SCH ×2 (07:51→17:31)
[2019-08-12] MEDS: Calcium Carbonate/Vitamin D3 625 MG-125 Unit Tab PO SCH ×2 (07:51→17:30)
[2019-08-12] MEDS: Metoprolol Succinate 50 MG Tab.ER PO SCH (07:51)
[2019-08-12] MEDS: Digoxin 125 MCG Tab PO SCH (07:51)
[2019-08-12] MEDS: Methimazole 10 MG Tab PO SCH (07:52)
[2019-08-12] MEDS: Acetaminophen/oxyCODONE 325-5 MG Tab PO PRN (07:52)
[2019-08-12] MEDS: Bisacodyl 5 MG Tab PO PRN (07:52)
[2019-08-12] MEDS: Acetaminophen 325 MG Tab PO PRN (09:50)
[2019-08-12] MEDS: LORazepam 1 MG Tab PO SCH (19:37)
[2019-08-12] MEDS: Simvastatin 20 MG Tab PO SCH (19:37)
[2019-08-13] MEDS: Ondansetron 4 MG Tab.DIS PO PRN (06:45)
[2019-08-13] MEDS: Fluticasone Propionate Nasal Spray 16 GM Bottle NASBOTH SCH ×2 (09:46→20:37)
[2019-08-13] MEDS: Digoxin 125 MCG Tab PO SCH (09:47)
[2019-08-13] MEDS: Aspirin 81 MG Tab.EC PO SCH (09:47)
[2019-08-13] MEDS: Calcium Carbonate/Vitamin D3 625 MG-125 Unit Tab PO SCH ×2 (09:47→17:21)
[2019-08-13] MEDS: Apixaban 5 MG Tab PO SCH ×2 (09:47→17:21)
[2019-08-13] MEDS: Methimazole 10 MG Tab PO SCH (09:48)
[2019-08-13] MEDS: Cholecalciferol (Vitamin D3) 25 MCG Tab PO SCH (09:49)
[2019-08-13] MEDS: Metoprolol Succinate 50 MG Tab.ER PO SCH (09:49)
[2019-08-13] MEDS: Acetaminophen/oxyCODONE 325-5 MG Tab PO PRN ×2 (09:50→20:19)
[2019-08-13] MEDS: Cyanocobalamin (Vitamin B12) 1,000 MCG Tab PO SCH (09:50)
[2019-08-13] MEDS: traMADol 50 MG Tab PO PRN (15:05)
[2019-08-13] MEDS: LORazepam 1 MG Tab PO SCH (20:18)
[2019-08-13] MEDS: Acetaminophen 325 MG Tab PO PRN (20:19)
[2019-08-13] MEDS: Simvastatin 20 MG Tab PO SCH (20:19)
[2019-08-14] MEDS: Apixaban 5 MG Tab PO SCH ×2 (07:37→17:26)
[2019-08-14] MEDS: Calcium Carbonate/Vitamin D3 625 MG-125 Unit Tab PO SCH ×2 (07:37→17:26)
[2019-08-14] MEDS: Methimazole 10 MG Tab PO SCH (07:38)
[2019-08-14] MEDS: Cholecalciferol (Vitamin D3) 25 MCG Tab PO SCH (07:38)
[2019-08-14] MEDS: Cyanocobalamin (Vitamin B12) 1,000 MCG Tab PO SCH (07:38)
[2019-08-14] MEDS: Aspirin 81 MG Tab.EC PO SCH (07:38)
[2019-08-14] MEDS: Digoxin 125 MCG Tab PO SCH (07:38)
[2019-08-14] MEDS: Fluticasone Propionate Nasal Spray 16 GM Bottle NASBOTH SCH ×2 (07:39→20:26)
[2019-08-14] MEDS: Metoprolol Succinate 50 MG Tab.ER PO SCH (07:39)
[2019-08-14] MEDS: Acetaminophen/oxyCODONE 325-5 MG Tab PO PRN ×2 (09:16→20:25)
[2019-08-14] MEDS: LORazepam 1 MG Tab PO SCH (20:24)
[2019-08-14] MEDS: Acetaminophen 325 MG Tab PO PRN (20:24)
[2019-08-14] MEDS: Simvastatin 20 MG Tab PO SCH (20:25)
[2019-08-15] MEDS: Fluticasone Propionate Nasal Spray 16 GM Bottle NASBOTH SCH ×2 (07:56→20:12)
[2019-08-15] MEDS: Apixaban 5 MG Tab PO SCH ×2 (07:56→20:12)
[2019-08-15] MEDS: Metoprolol Succinate 50 MG Tab.ER PO SCH (07:57)
[2019-08-15] MEDS: Methimazole 10 MG Tab PO SCH (07:57)
[2019-08-15] MEDS: Digoxin 125 MCG Tab PO SCH (07:57)
[2019-08-15] MEDS: Calcium Carbonate/Vitamin D3 625 MG-125 Unit Tab PO SCH ×2 (08:04→20:12)
[2019-08-15] MEDS: Cholecalciferol (Vitamin D3) 25 MCG Tab PO SCH (08:04)
[2019-08-15] MEDS: Cyanocobalamin (Vitamin B12) 1,000 MCG Tab PO SCH (08:04)
[2019-08-15] MEDS: Aspirin 81 MG Tab.EC PO SCH (08:04)
[2019-08-15] MEDS: Acetaminophen/oxyCODONE 325-5 MG Tab PO PRN (08:18)
[2019-08-15 13:24] LABS: PTT,PARTIAL THROMBOPLSTIN TIME 28.1 SEC (24.5-32.8)
[2019-08-15 13:25] LABS: CHLORIDE,CL 102 mmol/L (98-107); SODIUM,NA 138 mmol/L (136-145)
--- NOTE | 2019-08-15 15:40 | PCM.SN ---
- Free Text/Narrative Note: Blood work ordered today and reviewed. Note persistent anemia after recent surgery. Initiate iron sulfate therapy with repeat CBC and additional vitamin B- 12 and folic acid levels on 08/17. Recommend iron studies and ferritin level in about 4 weeks. Continue PT and OT as before.
[2019-08-15] MEDS ORDERED: Ferrous Sulfate 325 MG Tab PO SCH (17:30)
[2019-08-15] MEDS: LORazepam 1 MG Tab PO SCH (20:11)
[2019-08-15] MEDS: Simvastatin 20 MG Tab PO SCH (20:11)
[2019-08-15] MEDS: Ferrous Sulfate 325 MG Tab PO SCH (20:12)
[2019-08-16] MEDS: traMADol 50 MG Tab PO PRN (04:21)
[2019-08-16] MEDS: Calcium Carbonate/Vitamin D3 625 MG-125 Unit Tab PO SCH ×2 (08:48→19:11)
[2019-08-16] MEDS: Cholecalciferol (Vitamin D3) 25 MCG Tab PO SCH (08:48)
[2019-08-16] MEDS: Fluticasone Propionate Nasal Spray 16 GM Bottle NASBOTH SCH ×2 (08:48→19:12)
[2019-08-16] MEDS: Apixaban 5 MG Tab PO SCH ×2 (08:49→19:12)
[2019-08-16] MEDS: Ferrous Sulfate 325 MG Tab PO SCH ×2 (08:49→19:11)
[2019-08-16] MEDS: Aspirin 81 MG Tab.EC PO SCH (08:49)
[2019-08-16] MEDS: Methimazole 10 MG Tab PO SCH (08:49)
[2019-08-16] MEDS: Cyanocobalamin (Vitamin B12) 1,000 MCG Tab PO SCH (08:50)
[2019-08-16] MEDS: Acetaminophen/oxyCODONE 325-5 MG Tab PO PRN ×2 (08:53→20:38)
[2019-08-16] MEDS: Digoxin 125 MCG Tab PO SCH (08:53)
[2019-08-16] MEDS: Metoprolol Succinate 50 MG Tab.ER PO SCH (08:53)
[2019-08-16] MEDS: LORazepam 1 MG Tab PO SCH (19:11)
[2019-08-16] MEDS: Simvastatin 20 MG Tab PO SCH (19:11)
[2019-08-17] MEDS: Digoxin 125 MCG Tab PO SCH (07:30)
[2019-08-17] MEDS: Cholecalciferol (Vitamin D3) 25 MCG Tab PO SCH (07:30)
[2019-08-17] MEDS: Fluticasone Propionate Nasal Spray 16 GM Bottle NASBOTH SCH ×2 (07:30→19:55)
[2019-08-17] MEDS: Calcium Carbonate/Vitamin D3 625 MG-125 Unit Tab PO SCH ×2 (07:31→19:55)
[2019-08-17] MEDS: Cyanocobalamin (Vitamin B12) 1,000 MCG Tab PO SCH (07:31)
[2019-08-17] MEDS: Methimazole 10 MG Tab PO SCH (07:31)
[2019-08-17] MEDS: Ferrous Sulfate 325 MG Tab PO SCH ×2 (07:31→19:55)
[2019-08-17] MEDS: Aspirin 81 MG Tab.EC PO SCH (07:32)
[2019-08-17] MEDS: Metoprolol Succinate 50 MG Tab.ER PO SCH (07:32)
[2019-08-17] MEDS: Apixaban 5 MG Tab PO SCH ×2 (07:34→19:55)
[2019-08-17] MEDS: Bisacodyl 5 MG Tab PO PRN (09:21)
[2019-08-17] MEDS: Ondansetron 4 MG Tab.DIS PO PRN (11:58)
[2019-08-17] MEDS: LORazepam 1 MG Tab PO SCH (19:55)
[2019-08-17] MEDS: Simvastatin 20 MG Tab PO SCH (19:55)
[2019-08-18] MEDS ORDERED: Magnesium Hydroxide 400 MG/5 ML Susp 30 ML Cup PO PRN (05:30)
[2019-08-18] MEDS ORDERED: Aluminum Hydroxide/Magnesium Hydroxide/Simethicone Susp 30 ML Cup PO PRN (07:16)
[2019-08-18] MEDS: Bisacodyl 5 MG Tab PO PRN (07:42)
[2019-08-18] MEDS: Metoprolol Succinate 50 MG Tab.ER PO SCH (09:56)
[2019-08-18] MEDS: Calcium Carbonate/Vitamin D3 625 MG-125 Unit Tab PO SCH ×2 (09:56→20:16)
[2019-08-18] MEDS: Aspirin 81 MG Tab.EC PO SCH (09:57)
[2019-08-18] MEDS: Cholecalciferol (Vitamin D3) 25 MCG Tab PO SCH (09:57)
[2019-08-18] MEDS: Ferrous Sulfate 325 MG Tab PO SCH ×2 (09:57→20:14)
[2019-08-18] MEDS: Apixaban 5 MG Tab PO SCH ×2 (09:57→20:16)
[2019-08-18] MEDS: Cyanocobalamin (Vitamin B12) 1,000 MCG Tab PO SCH (09:58)
[2019-08-18] MEDS: Digoxin 125 MCG Tab PO SCH (09:59)
[2019-08-18] MEDS: Methimazole 10 MG Tab PO SCH (10:00)
[2019-08-18] MEDS: Fluticasone Propionate Nasal Spray 16 GM Bottle NASBOTH SCH ×2 (10:04→20:17)
[2019-08-18] MEDS: traMADol 50 MG Tab PO PRN (10:05)
[2019-08-18] MEDS: Ondansetron 4 MG Tab.DIS PO PRN (10:08)
[2019-08-18] MEDS: Acetaminophen 325 MG Tab PO PRN (10:08)
--- NOTE | 2019-08-18 11:50 | PCM.PN ---
- General Info Date of Service: 08/18/19 Admission Dx/Problem (Free Text): Admission Diagnosis/Problem Admission Diagnosis/Problem 1. Intertrochanteric fracture, hip Functional Status: Reports: Pain Controlled, Ambulating (With assist per PT and OT), New Symptoms (Nausea/emesis as above). Denies: Tolerating Diet (Some nausea and recurrent emesis with no bowel movement during the last 3 days) Pain Score: 5 - Review of Systems General: Reports: Weakness (Improving slowly), Appetite (Decreased this morning) . Denies: Fever, Fatigue, Malaise, Chills, Night Sweats HEENT: Reports: Glasses. Denies: Dysphasia, Ear Pain, Eye Pain, Headaches, Post Nasal Drip, Sinus Congestion, Sore Throat, Rhinitis, Visual Changes Pulmonary: Reports: No Symptoms. Denies: Shortness of Breath, Pleuritic Chest Pain, Cough, Sputum, Hemoptysis, Wheezing Cardiovascular: Denies: Chest Pain, Palpitations, Dyspnea on Exertion, Orthopnea , PND, Edema, Lightheadedness Gastrointestinal: Reports: Constipation, Decreased Appetite, Nausea, Vomiting. Denies: Abdominal Pain, Difficulty Swallowing, Flatus, Hematochezia, Melena Genitourinary: Reports: No Symptoms. Denies: Dysuria, Frequency, Burning, Urgency, Hematuria, Retention, Flank Pain Musculoskeletal: Reports: Leg Pain (Stable postoperative left hip pain), Joint Pain (As above). Denies: Neck Pain, Shoulder Pain, Arm Pain, Back Pain Skin: Reports: Bruising (Stable). Denies: Cyanosis, Diaphoresis, Pruritis, Rash Neurological: Reports: Difficulty Walking, Weakness. Denies: Confusion, Headache, Numbness, Paresthesia, Pre-Existing Deficit, Tingling Psychiatric: Reports: No Symptoms. Denies: Confusion, Depression, Anxiety, Agitation, Cravings, Hallucinations - Patient Data Vitals - Most Recent: Last Vital Signs Temp 36.7 C 08/18/19 08:00 Pulse 104 H 08/18/19 09:59 Resp 18 08/18/19 08:00 BP 138/86 08/18/19 09:56 Pulse Ox 99 08/18/19 08:00 Vital Signs - 24 hr 08/17/19 08/18/19 08/18/19 19:52 08:00 09:56 Temperature [ 37.3 C 36.7 C Oral] Pulse, 104 H Peripheral Pulse, 89 104 H Peripheral [ Right Pulse Oximetry] Respiratory 16 18 Rate Blood Pressure 138/86 Blood Pressure 100/55 L 138/86 [Right Upper Arm] O2 Sat by Pulse 96 99 Oximetry 08/18/19 09:59 Temperature [ Oral] Pulse, 104 H Peripheral Pulse, Peripheral [ Right Pulse Oximetry] Respiratory Rate Blood Pressure Blood Pressure [Right Upper Arm] O2 Sat by Pulse Oximetry Weight - Most Recent: 79.56 kg I&O - Last 24 Hours: Intake & Output 08/17/19 08/18/19 08/18/19 22:59 06:59 14:59 Intake Total 300 Balance 300 Imaging Impressions - Last 24 Hours: Acute abdominal x-rays shows moderate COPD changes with no evidence of cardiomegaly, CHF, pulmonary infiltrates, or pneumothorax. Note status post median sternotomy, bilateral femoral ORIF, and right pelvic ring fixation. Moderate osteoarthritic changes and scoliosis particularly in the lumbar spine. Moderate diffuse stool with no fluid levels, free air, ileus, or obstruction. Lab Results Last 24 Hours: Laboratory Results - last 24 hr 08/18/19 08/18/19 Range/Units 07:30 08:45 WBC 6.9 (4.0-10.2) K/uL RBC 2.89 L (4.33-5.41) M/uL Hgb 9.4 L (13.1-16.8) g/dL Hct 29.8 L (39.0-49.0) % MCV 103.1 H (84.0-98.0) fL MCH 32.5 (28.2-33.3) pg MCHC 31.5 L (31.7-36.0) g/dL RDW 15.4 H (11.2-14.1) % Plt Count 281 D (150-350) K/uL Neut % (Auto) 81.7 H (45.0-80.0) % Lymph % (Auto) 9.1 L (10.0-50.0) % [place] % (Auto) 8.5 (2.0-14.0) % Eos % (Auto) 0.6 (0.0-5.0) % Baso % (Auto) 0.1 (0.0-2.0) % Neut # (Auto) 5.67 (1.40-7.00) K/uL Lymph # (Auto) 0.63 (0.50-3.50) K/uL [place] # (Auto) 0.59 (0.00-1.00) K/uL Eos # (Auto) 0.04 (0.00-0.50) K/uL Baso # (Auto) 0.01 (0.00-0.20) K/uL Vitamin B12 1328 H (193-986) pg/mL Folate 29.6 (8.6-58.9) ng/mL Laboratory Tests 08/15/19 08/15/19 08/15/19 Range/Units 12:55 12:55 12:55 WBC 6.4 (4.0-10.2) K/uL RBC 2.64 L (4.33-5.41) M/uL Hgb 8.5 L D (13.1-16.8) g/dL Hct 27.1 L (39.0-49.0) % MCV 102.7 H D (84.0-98.0) fL MCH 32.2 (28.2-33.3) pg MCHC 31.4 L (31.7-36.0) g/dL RDW 14.2 H (11.2-14.1) % Plt Count 202 (150-350) K/uL Neut % (Auto) 75.7 (45.0-80.0) % Lymph % (Auto) 13.4 (10.0-50.0) % [place] % (Auto) 9.2 (2.0-14.0) % Eos % (Auto) 1.2 (0.0-5.0) % Baso % (Auto) 0.5 (0.0-2.0) % Neut # (Auto) 4.85 (1.40-7.00) K/uL Lymph # (Auto) 0.86 (0.50-3.50) K/uL [place] # (Auto) 0.59 (0.00-1.00) K/uL Eos # (Auto) 0.08 (0.00-0.50) K/uL Baso # (Auto) 0.03 (0.00-0.20) K/uL PT 12.3 H (9.5-12.0) SEC INR 1.2 APTT 28.1 (24.5-32.8) SEC Sodium 138 (136-145) mmol/L Potassium 4.1 (3.5-5.1) mmol/L Chloride 102 (98-107) mmol/L Carbon Dioxide 28.5 (21.0-32.0) mmol/L BUN 21 H (7-18) mg/dL Creatinine 0.87 (0.51-1.17) mg/dL Est Cr Clr Drug Dosing 64.23 mL/min Estimated GFR (MDRD) > 60 mL/min Glucose 182 H (74-106) mg/dL Calcium 8.6 (8.5-10.1) mg/dL Total Bilirubin 3.0 H (0.2-1.0) mg/dL AST 34 (15-37) U/L ALT 35 (12-78) U/L Alkaline Phosphatase 59 (46-116) IU/L Total Protein 6.3 L (6.4-8.2) g/dL Albumin 3.1 L (3.4-5.0) g/dL Vitamin B12 (193-986) pg/mL Folate (8.6-58.9) ng/mL Digoxin 0.67 L (0.90-2.00) ng/mL 08/18/19 08/18/19 Range/Units 07:30 08:45 WBC 6.9 (4.0-10.2) K/uL RBC 2.89 L (4.33-5.41) M/uL Hgb 9.4 L (13.1-16.8) g/dL Hct 29.8 L (39.0-49.0) % MCV 103.1 H (84.0-98.0) fL MCH 32.5 (28.2-33.3) pg MCHC 31.5 L (31.7-36.0) g/dL RDW 15.4 H (11.2-14.1) % Plt Count 281 D (150-350) K/uL Neut % (Auto) 81.7 H (45.0-80.0) % Lymph % (Auto) 9.1 L (10.0-50.0) % [place] % (Auto) 8.5 (2.0-14.0) % Eos % (Auto) 0.6 (0.0-5.0) % Baso % (Auto) 0.1 (0.0-2.0) % Neut # (Auto) 5.67 (1.40-7.00) K/uL Lymph # (Auto) 0.63 (0.50-3.50) K/uL [place] # (Auto) 0.59 (0.00-1.00) K/uL Eos # (Auto) 0.04 (0.00-0.50) K/uL Baso # (Auto) 0.01 (0.00-0.20) K/uL PT (9.5-12.0) SEC INR APTT (24.5-32.8) SEC Sodium (136-145) mmol/L Potassium (3.5-5.1) mmol/L Chloride (98-107) mmol/L Carbon Dioxide (21.0-32.0) mmol/L BUN (7-18) mg/dL Creatinine (0.51-1.17) mg/dL Est Cr Clr Drug Dosing mL/min Estimated GFR (MDRD) mL/min Glucose (74-106) mg/dL Calcium (8.5-10.1) mg/dL Total Bilirubin (0.2-1.0) mg/dL AST (15-37) U/L ALT (12-78) U/L Alkaline Phosphatase (46-116) IU/L Total Protein (6.4-8.2) g/dL Albumin (3.4-5.0) g/dL Vitamin B12 1328 H (193-986) pg/mL Folate 29.6 (8.6-58.9) ng/mL Digoxin (0.90-2.00) ng/mL [facility] Results Last 24 Hours: Microbiology 08/15/19 18:00 Coronavirus RNA (PCR) - Final Nasal, Unspecified Negative COVID19 Med Orders - Current: Current Medications Acetaminophen (Tylenol) 650 mg PO Q4HR PRN PRN Reason: Pain (mild 1-3) Last Admin: 08/18/19 10:08 Dose: 650 mg Al Hydroxide/Mg Hydroxide (Mag-Al Plus) 30 ml PO Q4H PRN PRN Reason: Dyspepsia Last Admin: 08/18/19 07:30 Dose: 30 ml Apixaban (Eliquis) 5 mg PO Q12HR [facility] Last Admin: 04/06/20 09:57 Dose: 5 mg Aspirin (Halfprin) 81 mg PO DAILY [facility] Last Admin: 08/18/19 09:57 Dose: 81 mg Bisacodyl (Dulcolax) 5 mg PO DAILY PRN PRN Reason: Constipation Last Admin: 08/18/19 07:42 Dose: 5 mg Calcium Carbonate (Oystcal-D 625 Mg-125 Units) 1 tab PO Q12HR [facility] Last Admin: 08/18/19 09:56 Dose: 1 tab Cholecalciferol (Vitamin D3) 50 mcg PO DAILY [facility] Last Admin: 08/18/19 09:57 Dose: 50 mcg Coenzyme Q10 (Coenzyme Q10) 100 mg PO DAILY [facility] Last Admin: 08/18/19 09:58 Dose: 100 mg Cyanocobalamin (Vitamin B12) 1,000 mcg PO DAILY [facility] Last Admin: 08/18/19 09:58 Dose: 1,000 mcg Digoxin (Lanoxin) 125 mcg PO DAILY [facility] Last Admin: 08/18/19 09:59 Dose: 125 mcg Ferrous Sulfate (Ferrous Sulfate) 325 mg PO Q12HR [facility] Last Admin: 08/18/19 09:57 Dose: 325 mg Fluticasone Propionate (Flonase) 0 gm NASBOTH BID@0800,2000 [facility] Last Admin: 08/18/19 10:04 Dose: 1 sprays Lorazepam (Ativan) 1 mg PO BEDTIME [facility] Last Admin: 08/17/19 19:55 Dose: 1 mg Magnesium Hydroxide (Milk Of Magnesia) 30 ml PO DAILY PRN PRN Reason: Constipation Last Admin: 08/18/19 07:30 Dose: 30 ml Methimazole (Methimazole) 5 mg PO DAILY [facility] Last Admin: 08/18/19 10:00 Dose: 5 mg Metoprolol Succinate (Toprol Xl) 50 mg PO DAILY [facility] Last Admin: 08/18/19 09:56 Dose: 50 mg Ondansetron HCl (Zofran Odt) 4 mg PO Q6H PRN PRN Reason: Nausea/Vomiting Last Admin: 08/18/19 10:08 Dose: 4 mg Oxycodone/Acetaminophen (Percocet 325-5 Mg) 1 tab PO Q4HR PRN PRN Reason: Pain (severe 7-10) Last Admin: 04/04/20 20:38 Dose: 1 tab Senna/Docusate Sodium (Senna Plus) 1 tab PO DAILY PRN PRN Reason: Constipation Last Admin: 08/11/19 10:58 Dose: 1 tab Senna/Docusate Sodium (Senna Plus) 1 tab PO Q12HR [facility] Last Admin: 08/18/19 07:42 Dose: 1 tab Simvastatin (Zocor) 40 mg PO BEDTIME [facility] Last Admin: 08/17/19 19:55 Dose: 40 mg Tramadol HCl (Ultram) 50 mg PO Q6H PRN PRN Reason: Pain Last Admin: 08/18/19 10:05 Dose: 50 mg Discontinued Medications Apixaban (Eliquis) 5 mg PO BID [facility] Last Admin: 08/15/19 07:56 Dose: 5 mg Calcium Carbonate (Oystcal-D 625 Mg-125 Units) 1 tab PO BIDMEALS [facility] Last Admin: 08/15/19 08:04 Dose: 1 tab Ferrous Sulfate (Ferrous Sulfate) 325 mg PO BIDMEALS [facility] Fluticasone Propionate (Flonase) 0 gm NASBOTH BID [facility] Last Admin: 08/10/19 19:23 Dose: Not Given Senna/Docusate Sodium (Senna Plus) 1 tab PO BID [facility] Last Admin: 08/15/19 08:04 Dose: 1 tab - Exam Quality Assessment: DVT Prophylaxis (Eliquis). No: Supplemental Oxygen, Central Line/PICC, Urine Catheter, Skin Breakdown General: Alert, Oriented, Cooperative, No Acute Distress HEENT: Pupils Equal, Pupils Reactive, EOMI, Mucous Membr. Moist/[place], Other ( Patient wearing glasses). No: Scleral Icterus Neck: Supple, Trachea Midline, No JVD, No Thyromegaly, Carotid Bruit (Mild to moderate bilateral carotid bruits versus transmitted heart sounds). No: Lymphadenopathy Lungs: Clear to Auscultation, Normal Respiratory Effort. 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 No: Gallops, Rubs GI/Abdominal Exam: Soft, Non-Tender, No Organomegaly, No Distention, No Abnormal Bruit, No Mass, Abnormal Bowel Sounds (Somewhat diffuse decreased bowel sounds but not high-pitched in nature). No: Guarding, Rigid, Rebound, Tender (Male) Exam: Deferred Back Exam: Normal Inspection, Full Range of Motion. No: CVA Tenderness (L), CVA Tenderness (R), Muscle Spasm, Paraspinal Tenderness, Vertebral Tenderness Extremities: Pedal Edema (Trace bilateral pedal/pretibial edema knee-high ELIF hose), Limited Range of Motion (Postoperative left hip), Other (Posterior femoral ecchymosis with multiple dressings on previous incisions from left hip surgery, which appear dry). No: Rain's Sign Peripheral Pulses: 2+: Radial (L), Radial (R), Dorsalis Pedis (L), Dorsalis Pedis (R) Skin: Ecchymosis (As above) Wound/Incisions: Healing Well, No Drainage Neurological: No New Focal Deficit Psy/Mental Status: Alert, Normal Affect, Normal Mood. No: Agitated, Hallucinations, Withdrawal Symptoms Sepsis Event Note - Evaluation Sepsis Screening Result: No Definite Risk - Focused Exam Vital Signs: Vital Signs Temp Pulse Pulse Resp BP BP Pulse Ox 08/18/19 09:59 104 H 08/18/19 09:56 104 H 138/86 08/18/19 08:00 36.7 C 104 H 18 138/86 99 Date Exam was Performed: 08/18/19 Time Exam was Performed: 12:15 - Problem List & Annotations (1) Anemia SNOMED Code(s): 411629253 Code(s): D64.9 - ANEMIA, UNSPECIFIED Status: Acute Priority: High Current Visit: Yes Qualifiers: Anemia type: other cause Other causes of anemia: other cause, not classified Qualified Code(s): D64.89 - Other specified anemias Annotation/Comment:: Postoperative anemia improved since initiation of iron sulfate therapy on 08/14. Close follow-up by regular providers at the discharge, including recommended repeat TIBC panel and ferritin level in about 4 weeks. Vitamin B-12 and folic acid levels were normal on 08/14. (2) Constipation SNOMED Code(s): 95982142 Code(s): K59.00 - CONSTIPATION, UNSPECIFIED Status: Chronic Priority: High Current Visit: Yes Qualifiers: Constipation type: other constipation type Qualified Code(s): K59.09 - Other constipation Annotation/Comment:: Constipation likely secondary to current pain medications, etc. with additional treatment with MiraLAX and magnesium citrate today. He has already been taking Zofran for his secondary nausea/emesis. Continue to observe symptoms closely. (3) Atrial fibrillation SNOMED Code(s): 09665212 Code(s): I48.91 - UNSPECIFIED ATRIAL FIBRILLATION Status: Chronic Priority: Medium Current Visit: Yes Qualifiers: Atrial fibrillation type: longstanding persistent Qualified Code(s): I48.11 - Longstanding persistent atrial fibrillation Annotation/Comment:: Stable per history occasional borderline tachycardia, which is nonsymptomatic. Note current Eliquis therapy. (4) CAD (coronary artery disease) SNOMED Code(s): 66995338 Code(s): I25.10 - ATHSCL HEART DISEASE OF [place] CORONARY ARTERY W/O ANG PCTRS Status: Chronic Priority: Medium Current Visit: Yes Qualifiers: Coronary Disease-Associated Artery/Lesion type: bypass graft, autologous artery Associated angina: without angina Qualified Code(s): I25.810 - Atherosclerosis of coronary artery bypass graft(s) without angina pectoris Annotation/Comment:: No chest pain or anginal type symptoms. Note moderate valvular disease by clinical exam including mitral valves insufficiency and aortic valve stenosis. In addition, note status post CABG and PTCA/stent. (5) COPD (chronic obstructive pulmonary disease) SNOMED Code(s): 02055225 Code(s): J44.9 - CHRONIC OBSTRUCTIVE PULMONARY DISEASE, UNSPECIFIED Status : Chronic Priority: Medium Current Visit: Yes Qualifiers: COPD type: emphysema Emphysema type: panlobular Qualified Code(s): J43.1 - Panlobular emphysema Annotation/Comment:: No recent fever or bronchitic type symptoms. (6) Hypertension SNOMED Code(s): 53629543 Code(s): I10 - ESSENTIAL (PRIMARY) HYPERTENSION Status: Chronic Priority : Medium Current Visit: Yes Qualifiers: Hypertension type: essential hypertension Qualified Code(s): I10 - Essential (primary) hypertension Annotation/Comment:: Stable during swing bed care. (7) Osteoarthritis SNOMED Code(s): 645976319 Code(s): M19.90 - UNSPECIFIED OSTEOARTHRITIS, UNSPECIFIED SITE Status: Chronic Priority: Medium Current Visit: Yes Qualifiers: Osteoarthritis location: multiple joints Osteoarthritis type: primary Qualified Code(s): M89.49 - Other hypertrophic osteoarthropathy, multiple sites Annotation/Comment:: Stable by history with no other injuries from his fall. - Problem List Review Problem List Initiated/Reviewed/Updated: Yes - My Orders Last 24 Hours: My Active Orders 08/18/19 10:50 Abdomen Series w Chest 1V [CR] Routine - Assessment Assessment:: As above. - Plan Plan:: As above. Continue physical therapy and occupational therapy in our facility. Note previous COVID-19 exposure from his previous physical therapist with negative screening in our facility as above.
[2019-08-18] MEDS ORDERED: Polyethylene Glycol 3350 Powder 17 GM Packet PO ONE (12:15)
[2019-08-18] MEDS ORDERED: Magnesium Citrate Solution 296 ML Bottle PO ONE (12:15)
[2019-08-18] MEDS: LORazepam 1 MG Tab PO SCH (20:15)
[2019-08-18] MEDS: Simvastatin 20 MG Tab PO SCH (20:16)
[2019-08-19] MEDS: Digoxin 125 MCG Tab PO SCH (08:00)
[2019-08-19] MEDS: Calcium Carbonate/Vitamin D3 625 MG-125 Unit Tab PO SCH ×2 (08:00→20:09)
[2019-08-19] MEDS: Aspirin 81 MG Tab.EC PO SCH (08:00)
[2019-08-19] MEDS: Cyanocobalamin (Vitamin B12) 1,000 MCG Tab PO SCH (08:00)
[2019-08-19] MEDS: Ferrous Sulfate 325 MG Tab PO SCH ×2 (08:01→20:09)
[2019-08-19] MEDS: Methimazole 10 MG Tab PO SCH (08:01)
[2019-08-19] MEDS: Cholecalciferol (Vitamin D3) 25 MCG Tab PO SCH (08:01)
[2019-08-19] MEDS: Metoprolol Succinate 50 MG Tab.ER PO SCH (08:01)
[2019-08-19] MEDS: Apixaban 5 MG Tab PO SCH ×2 (08:01→20:09)
[2019-08-19] MEDS: Fluticasone Propionate Nasal Spray 16 GM Bottle NASBOTH SCH ×2 (08:02→20:10)
[2019-08-19] MEDS: traMADol 50 MG Tab PO PRN (08:30)
[2019-08-19] MEDS: Acetaminophen 325 MG Tab PO PRN (08:30)
[2019-08-19] MEDS: Simvastatin 20 MG Tab PO SCH (20:09)
[2019-08-19] MEDS: LORazepam 1 MG Tab PO SCH (20:09)
[2019-08-20] MEDS: Fluticasone Propionate Nasal Spray 16 GM Bottle NASBOTH SCH ×2 (07:33→19:37)
[2019-08-20] MEDS: Cholecalciferol (Vitamin D3) 25 MCG Tab PO SCH (07:33)
[2019-08-20] MEDS: Ferrous Sulfate 325 MG Tab PO SCH ×2 (07:33→19:36)
[2019-08-20] MEDS: Apixaban 5 MG Tab PO SCH ×2 (07:34→19:36)
[2019-08-20] MEDS: Acetaminophen 325 MG Tab PO PRN (07:34)
[2019-08-20] MEDS: Ondansetron 4 MG Tab.DIS PO PRN (07:35)
[2019-08-20] MEDS: Methimazole 10 MG Tab PO SCH (07:35)
[2019-08-20] MEDS: Aspirin 81 MG Tab.EC PO SCH (07:36)
[2019-08-20] MEDS: Cyanocobalamin (Vitamin B12) 1,000 MCG Tab PO SCH (07:36)
[2019-08-20] MEDS: Calcium Carbonate/Vitamin D3 625 MG-125 Unit Tab PO SCH ×2 (07:36→19:36)
[2019-08-20] MEDS: Digoxin 125 MCG Tab PO SCH (07:38)
[2019-08-20] MEDS: Metoprolol Succinate 50 MG Tab.ER PO SCH (07:38)
[2019-08-20] MEDS: Acetaminophen/oxyCODONE 325-5 MG Tab PO PRN (12:09)
[2019-08-20] MEDS: LORazepam 1 MG Tab PO SCH (19:36)
[2019-08-20] MEDS: Simvastatin 20 MG Tab PO SCH (19:37)
[2019-08-21] MEDS: Digoxin 125 MCG Tab PO SCH (07:48)
[2019-08-21] MEDS: Methimazole 10 MG Tab PO SCH (07:48)
[2019-08-21] MEDS: Cyanocobalamin (Vitamin B12) 1,000 MCG Tab PO SCH (07:49)
[2019-08-21] MEDS: Cholecalciferol (Vitamin D3) 25 MCG Tab PO SCH (07:49)
[2019-08-21] MEDS: Calcium Carbonate/Vitamin D3 625 MG-125 Unit Tab PO SCH ×2 (07:49→19:10)
[2019-08-21] MEDS: Apixaban 5 MG Tab PO SCH ×2 (07:50→19:09)
[2019-08-21] MEDS: Metoprolol Succinate 50 MG Tab.ER PO SCH (07:50)
[2019-08-21] MEDS: Aspirin 81 MG Tab.EC PO SCH (07:50)
[2019-08-21] MEDS: Ferrous Sulfate 325 MG Tab PO SCH ×2 (07:50→19:10)
[2019-08-21] MEDS: Acetaminophen/oxyCODONE 325-5 MG Tab PO PRN (07:51)
[2019-08-21] MEDS: Fluticasone Propionate Nasal Spray 16 GM Bottle NASBOTH SCH ×2 (07:52→19:11)
[2019-08-21] MEDS: Acetaminophen 325 MG Tab PO PRN (17:09)
[2019-08-21] MEDS: traMADol 50 MG Tab PO PRN (17:10)
[2019-08-21] MEDS: LORazepam 1 MG Tab PO SCH (19:10)
[2019-08-21] MEDS: Simvastatin 20 MG Tab PO SCH (19:11)
[2019-08-22 07:46] VITALS: BP 116/68; PULSE 81
[2019-08-22] MEDS: Digoxin 125 MCG Tab PO SCH (08:35)
[2019-08-22] MEDS: Aspirin 81 MG Tab.EC PO SCH (08:35)
[2019-08-22] MEDS: Ferrous Sulfate 325 MG Tab PO SCH (08:36)
[2019-08-22] MEDS: Calcium Carbonate/Vitamin D3 625 MG-125 Unit Tab PO SCH (08:36)
[2019-08-22] MEDS: Metoprolol Succinate 50 MG Tab.ER PO SCH (08:36)
[2019-08-22] MEDS: Apixaban 5 MG Tab PO SCH (08:36)
[2019-08-22] MEDS: Methimazole 10 MG Tab PO SCH (08:37)
[2019-08-22] MEDS: Cyanocobalamin (Vitamin B12) 1,000 MCG Tab PO SCH (08:38)
[2019-08-22] MEDS: Cholecalciferol (Vitamin D3) 25 MCG Tab PO SCH (08:38)
[2019-08-22] MEDS: Fluticasone Propionate Nasal Spray 16 GM Bottle NASBOTH SCH (08:39)
--- NOTE | 2019-08-22 11:32 | PCM.DCSUM1 ---
Discharge Summary - Hospital Course Free Text/Narrative:: Pt admitted for PT and OT after undergoing ORIF of left hip fracture Has done well Will be d/c'd home at this time No home health Diagnosis: Stroke: No - Discharge Data Discharge Date: 08/22/19 Discharge Disposition: Home, Self-Care 01 Condition: Good - Referral to Home Health Primary Care Physician: PCP None - Discharge Diagnosis/Problem(s) (1) S/P ORIF (open reduction internal fixation) fracture SNOMED Code(s): 374025232 ICD Code: Z98.890 - OTHER SPECIFIED POSTPROCEDURAL STATES; Z87.81 - PERSONAL HISTORY OF (HEALED) TRAUMATIC FRACTURE Status: Acute Priority: High Current Visit: Yes Onset Date: ~08/05/19 Problem Details: Recent ORIF. Here for Swing Bed care and PT/OT - Patient Summary/Data Consults: Consultations 08/09/19 14:52 OT Evaluation and Treatment [CONS] Routine PT Evaluation and Treatment [CONS] Routine 08/09/19 16:21 Consult to Case Management/Robotic Machine Operator [CONS] Routine - Patient Instructions Diet: Regular Diet as Tolerated Activity: As Tolerated Showering/Bathing: May Shower Wound/Incision Care: Keep Operative Site/Wound Site Clean and Dry Notify Provider of: Fever, Increased Pain, Swelling and Redness, Drainage Other/Special Instructions: Follow up with surgeon as scheduled - Discharge Plan *PRESCRIPTION DRUG MONITORING PROGRAM REVIEWED*: Not Applicable *COPY OF PRESCRIPTION DRUG MONITORING REPORT IN PATIENT [facility]NA: Not Applicable Prescriptions/Med Rec: Ferrous Sulfate 325 mg PO Q12HR #60 tablet traMADol [Ultram] 50 mg PO Q6H PRN #20 tablet PRN Reason: Pain Home Medications: Home Meds Simvastatin [Zocor] 40 mg PO BEDTIME 01/30/15 [History] Apixaban [Eliquis] 5 mg PO BID 08/05/19 [History] Aspirin [Ecotrin EC] 81 mg PO DAILY 08/05/19 [History] Cholecalciferol (Vitamin D3) [Vitamin D3] 2,000 unit PO DAILY 08/05/19 [History] Cyanocobalamin (Vitamin B12) [Vitamin B12] 1,000 mcg PO DAILY 08/05/19 [History] Fluticasone Propionate [Flonase] 1 spray LUDWIG BID 08/05/19 [History] LORazepam [Lorazepam] 1 mg PO BEDTIME 08/05/19 [History] Metoprolol Succinate 50 mg PO DAILY 08/05/19 [History] methIMAzole [Methimazole] 5 mg PO DAILY 08/05/19 [History] Acetaminophen 650 mg PO Q4HR PRN 08/09/19 [History] Calcium Citrate/Vitamin D3 [Calcium Cit 315-Vit D3 250 Tab] 1 each PO BIDMEALS 08/09/19 [History] Digoxin 125 mcg PO DAILY 08/09/19 [History] Ferrous Sulfate 325 mg PO Q12HR #60 tablet 08/22/19 [Rx] traMADol [Ultram] 50 mg PO Q6H PRN #20 tablet 08/22/19 [Rx] Oxygen Therapy Mode: Room Air - Discharge Summary/Plan Comment DC Time >30 min.: No - Patient Data Vitals - Most Recent: Last Vital Signs Temp 98.0 F 08/22/19 07:45 Pulse 81 08/22/19 08:36 Resp 16 08/22/19 07:45 BP 116/68 08/22/19 08:36 Pulse Ox 99 08/22/19 07:45 Weight - Most Recent: 175 lb 6.4 oz Med Orders - Current: Current Medications Acetaminophen (Tylenol) 650 mg PO Q4HR PRN PRN Reason: Pain (mild 1-3) Last Admin: 08/21/19 17:09 Dose: 650 mg Al Hydroxide/Mg Hydroxide (Mag-Al Plus) 30 ml PO Q4H PRN PRN Reason: Dyspepsia Last Admin: 08/18/19 07:30 Dose: 30 ml Apixaban (Eliquis) 5 mg PO Q12HR [facility] Last Admin: 08/22/19 08:36 Dose: 5 mg Aspirin (Halfprin) 81 mg PO DAILY [facility] Last Admin: 08/22/19 08:35 Dose: 81 mg Bisacodyl (Dulcolax) 5 mg PO DAILY PRN PRN Reason: Constipation Last Admin: 08/18/19 07:42 Dose: 5 mg Calcium Carbonate (Oystcal-D 625 Mg-125 Units) 1 tab PO Q12HR [facility] Last Admin: 08/22/19 08:36 Dose: 1 tab Cholecalciferol (Vitamin D3) 50 mcg PO DAILY [facility] Last Admin: 08/22/19 08:38 Dose: 50 mcg Coenzyme Q10 (Coenzyme Q10) 100 mg PO DAILY [facility] Last Admin: 08/22/19 08:38 Dose: 100 mg Cyanocobalamin (Vitamin B12) 1,000 mcg PO DAILY [facility] Last Admin: 08/22/19 08:38 Dose: 1,000 mcg Digoxin (Lanoxin) 125 mcg PO DAILY [facility] Last Admin: 08/22/19 08:35 Dose: 125 mcg Ferrous Sulfate (Ferrous Sulfate) 325 mg PO Q12HR [facility] Last Admin: 08/22/19 08:36 Dose: 325 mg Fluticasone Propionate (Flonase) 0 gm NASBOTH BID@08,1999 [facility] Last Admin: 08/22/19 08:39 Dose: 1 sprays Lorazepam (Ativan) 1 mg PO BEDTIME [facility] Last Admin: 08/21/19 19:10 Dose: 1 mg Magnesium Hydroxide (Milk Of Magnesia) 30 ml PO DAILY PRN PRN Reason: Constipation Last Admin: 08/18/19 07:30 Dose: 30 ml Methimazole (Methimazole) 5 mg PO DAILY [facility] Last Admin: 08/22/19 08:37 Dose: 5 mg Metoprolol Succinate (Toprol Xl) 50 mg PO DAILY [facility] Last Admin: 08/22/19 08:36 Dose: 50 mg Ondansetron HCl (Zofran Odt) 4 mg PO Q6H PRN PRN Reason: Nausea/Vomiting Last Admin: 08/20/19 07:35 Dose: 4 mg Oxycodone/Acetaminophen (Percocet 325-5 Mg) 1 tab PO Q4HR PRN PRN Reason: Pain (severe 7-10) Last Admin: 08/21/19 07:51 Dose: 1 tab Senna/Docusate Sodium (Senna Plus) 1 tab PO DAILY PRN PRN Reason: Constipation Last Admin: 08/11/19 10:58 Dose: 1 tab Senna/Docusate Sodium (Senna Plus) 1 tab PO Q12HR [facility] Last Admin: 08/22/19 08:36 Dose: 1 tab Simvastatin (Zocor) 40 mg PO BEDTIME [facility] Last Admin: 08/21/19 19:11 Dose: 40 mg Tramadol HCl (Ultram) 50 mg PO Q6H PRN PRN Reason: Pain Last Admin: 08/21/19 17:10 Dose: 50 mg Discontinued Medications Apixaban (Eliquis) 5 mg PO BID [facility] Last Admin: 08/15/19 07:56 Dose: 5 mg Calcium Carbonate (Oystcal-D 625 Mg-125 Units) 1 tab PO BIDMEALS [facility] Last Admin: 08/15/19 08:04 Dose: 1 tab Ferrous Sulfate (Ferrous Sulfate) 325 mg PO BIDMEALS [facility] Fluticasone Propionate (Flonase) 0 gm NASBOTH BID [facility] Last Admin: 08/10/19 19:23 Dose: Not Given Magnesium Citrate (Citrate Of Magnesia) 296 ml PO ONETIME ONE Stop: 08/18/19 12:16 Last Admin: 08/18/19 12:49 Dose: 296 ml Polyethylene Glycol (Miralax) 17 gm PO ONETIME ONE Stop: 08/18/19 12:16 Last Admin: 08/18/19 12:49 Dose: 17 gm Senna/Docusate Sodium (Senna Plus) 1 tab PO BID [facility] Last Admin: 08/15/19 08:04 Dose: 1 tab
== END 2019-08-22 12:40 | disposition home or self-care (01) | DRG 560 ==
LOC: LL.MS 08-09 12:30 → UNDOADMIN 08-09 12:30 → LL.MS 08-09 14:52
PROVIDERS: ADMIT Emergency Medicine; ATTEND Emergency Medicine
DX: S72.142D Displaced intertrochanteric fracture of left femur, subsequent encounter for closed fracture with routine healing (principal); I48.11 Longstanding persistent atrial fibrillation; I25.810 Atherosclerosis of coronary artery bypass graft(s) without angina pectoris; H91.90 Unspecified hearing loss, unspecified ear; H54.7 Unspecified visual loss; H91.13 Presbycusis, bilateral; E78.00 Pure hypercholesterolemia, unspecified; I49.9 Cardiac arrhythmia, unspecified; I73.9 Peripheral vascular disease, unspecified; I45.10 Unspecified right bundle-branch block; I49.1 Atrial premature depolarization; I49.3 Ventricular premature depolarization; I71.4 Abdominal aortic aneurysm, without rupture; I35.0 Nonrheumatic aortic (valve) stenosis; N40.0 Benign prostatic hyperplasia without lower urinary tract symptoms; M19.90 Unspecified osteoarthritis, unspecified site; F41.9 Anxiety disorder, unspecified; F32.9 Major depressive disorder, single episode, unspecified; E05.90 Thyrotoxicosis, unspecified without thyrotoxic crisis or storm; E04.2 Nontoxic multinodular goiter; Z96.653 Presence of artificial knee joint, bilateral; G25.81 Restless legs syndrome; J43.1 Panlobular emphysema; D64.9 Anemia, unspecified; Z79.01 Long term (current) use of anticoagulants; Z91.040 Latex allergy status; Z79.82 Long term (current) use of aspirin; Z79.899 Other long term (current) drug therapy; I25.2 Old myocardial infarction; Z95.5 Presence of coronary angioplasty implant and graft; Z90.49 Acquired absence of other specified parts of digestive tract; Z86.73 Personal history of transient ischemic attack (TIA), and cerebral infarction without residual deficits; Z98.41 Cataract extraction status, right eye; X58.XXXD Exposure to other specified factors, subsequent encounter; Z98.42 Cataract extraction status, left eye; Z95.1 Presence of aortocoronary bypass graft; Z87.891 Personal history of nicotine dependence
CPT/HCPCS: 36415; 74022; 80053; 80162; 82607; 82746; 85025; 85610; 85730; 97110-GO; 97110-GP; 97162-GP; 97165-GO; 97530-GO; 97530-GP; 97535-GO; A9270-GY; U0002

== ENCOUNTER 2022-11-01 01:28 | Emergency (ER) | payer MEDICARE, BC ==
[2022-11-01] MEDS ORDERED: Pantoprazole 40 MG Vial IVPUSH ONE (01:50)
[2022-11-01] MEDS ORDERED: Sodium Chloride 0.9% 1,000 ML IV SCH (02:10)
[2022-11-01] MEDS ORDERED: Pantoprazole 40 MG Vial ONE (03:15)
[2022-11-01 06:39] LABS: INR 1.3; PROTHROMBIN TIME 12.4 SEC (9.0-11.1)
[2022-11-01 06:43] LABS: ANION GAP 9.5 meq/L (7-15); BLOOD UREA NITROGEN,BUN 31 mg/dL (7-18); CARBON DIOXIDE,CO2 28.4 mmol/L (21.0-32.0); CHLORIDE,CL 107 mmol/L (98-107); CREATININE 1.21 mg/dL (0.51-1.17); ESTIMATED GFR 58 mL/min (>=60); GLUCOSE RANDOM 133 mg/dL (70-99); POTASSIUM,K 3.9 mmol/L (3.5-5.1); SODIUM,NA 141 mmol/L (136-145)
[2022-11-01 06:56] LABS: BASOPHILS ABSOLUTE AUTO 0.01 K/uL (0.00-0.20); BASOPHILS PERCENT AUTO 0.3 % (0.0-2.0); EOSINOPHILS ABSOLUTE AUTO 0.06 K/uL (0.00-0.50); EOSINOPHILS PERCENT AUTO 1.6 % (0.0-5.0); HEMATOCRIT 33.9 % (39.0-49.0); HEMOGLOBIN 10.9 g/dL (13.1-16.8); LYMPHOCYTES ABSOLUTE AUTO 0.72 K/uL (0.50-3.50); LYMPHOCYTES PERCENT AUTO 19.7 % (10.0-50.0); MEAN CORPUSCULAR HEMOGLOBIN 32.2 pg (28.2-33.3); MEAN CORPUSCULAR HGB CONC 32.2 g/dL (31.7-36.0); MONOCYTES ABSOLUTE AUTO 0.36 K/uL (0.00-1.00); MONOCYTES PERCENT AUTO 9.9 % (2.0-14.0); NEUTROPHILS PERCENT AUTO 68.5 % (45.0-80.0); PLATELET COUNT,PLT 123 K/uL (150-350); RED BLOOD CELL COUNT 3.39 M/uL (4.33-5.41); RED CELL DISTRIBUTION WIDTH 13.2 % (11.2-14.1); WHITE BLOOD CELL COUNT,WBC 3.7 K/uL (4.0-10.2)
== END 2022-11-01 03:43 ==
LOC: LL.ED 01:28
DX: K92.2 Gastrointestinal hemorrhage, unspecified (principal); I48.91 Unspecified atrial fibrillation; I25.2 Old myocardial infarction; Z79.01 Long term (current) use of anticoagulants; Z79.02 Long term (current) use of antithrombotics/antiplatelets
CPT/HCPCS: 36415; 74018; 80048; 85025; 85610; 86850; 86900; 86901; 86920; 86922; 96361; 96374; 96376; 99285-25; C9113; J7030

== ENCOUNTER 2022-11-05 21:33 | Emergency (ER) | payer MEDICARE, BC ==
[2022-11-05 22:02] LABS: BASOPHILS ABSOLUTE AUTO 0.01 K/uL (0.00-0.20); BASOPHILS PERCENT AUTO 0.3 % (0.0-2.0); EOSINOPHILS ABSOLUTE AUTO 0.07 K/uL (0.00-0.50); EOSINOPHILS PERCENT AUTO 2.1 % (0.0-5.0); HEMATOCRIT 31.4 % (39.0-49.0); HEMOGLOBIN 10.3 g/dL (13.1-16.8); LYMPHOCYTES ABSOLUTE AUTO 0.58 K/uL (0.50-3.50); LYMPHOCYTES PERCENT AUTO 17.5 % (10.0-50.0); MEAN CORPUSCULAR HEMOGLOBIN 32.3 pg (28.2-33.3); MEAN CORPUSCULAR HGB CONC 32.8 g/dL (31.7-36.0); MEAN CORPUSCULAR VOLUME 98.4 fL (84.0-98.0); MONOCYTES ABSOLUTE AUTO 0.36 K/uL (0.00-1.00); MONOCYTES PERCENT AUTO 10.9 % (2.0-14.0); NEUTROPHILS ABSOLUTE AUTO 2.29 K/uL (1.40-7.00); NEUTROPHILS PERCENT AUTO 69.2 % (45.0-80.0); PLATELET COUNT,PLT 116 K/uL (150-350); RED BLOOD CELL COUNT 3.19 M/uL (4.33-5.41); RED CELL DISTRIBUTION WIDTH 13.7 % (11.2-14.1); WHITE BLOOD CELL COUNT,WBC 3.3 K/uL (4.0-10.2)
[2022-11-05] MEDS ORDERED: Sodium Chloride 0.9% 10 ML Syringe FLUSH PRN (22:04)
[2022-11-05 22:12] LABS: ANION GAP 7.8 meq/L (7-15); CALCIUM 8.7 mg/dL (8.5-10.1); CARBON DIOXIDE,CO2 27.2 mmol/L (21.0-32.0); CREATININE 1.12 mg/dL (0.51-1.17); EST CRCL DRUG DOSING (CG) 46.47 mL/min; POTASSIUM,K 3.6 mmol/L (3.5-5.1)
[2022-11-05 23:47] VITALS: BP 126/84; PULSE 105
[2022-11-06] MEDS: Sodium Chloride 0.9% 1,000 ML IV ONE (00:03)
== END 2022-11-06 00:06 ==
LOC: LL.ED 21:33
DX: K92.2 Gastrointestinal hemorrhage, unspecified (principal); I48.91 Unspecified atrial fibrillation; J44.9 Chronic obstructive pulmonary disease, unspecified; Z91.040 Latex allergy status; Z79.82 Long term (current) use of aspirin; Z87.891 Personal history of nicotine dependence
CPT/HCPCS: 36415; 80048; 85025; 99284; 99285; J7030

== ENCOUNTER 2022-11-22 03:20 | Emergency (ER) | payer MEDICARE, BC ==
[2022-11-22] MEDS ORDERED: Sodium Chloride 0.9% 10 ML Syringe FLUSH PRN (03:49)
[2022-11-22 03:58] LABS: BASOPHILS ABSOLUTE AUTO 0.01 K/uL (0.00-0.20); BASOPHILS PERCENT AUTO 0.3 % (0.0-2.0); EOSINOPHILS ABSOLUTE AUTO 0.08 K/uL (0.00-0.50); EOSINOPHILS PERCENT AUTO 2.1 % (0.0-5.0); HEMATOCRIT 30.5 % (39.0-49.0); HEMOGLOBIN 9.5 g/dL (13.1-16.8); LYMPHOCYTES ABSOLUTE AUTO 0.87 K/uL (0.50-3.50); LYMPHOCYTES PERCENT AUTO 22.8 % (10.0-50.0); MEAN CORPUSCULAR HEMOGLOBIN 31.3 pg (28.2-33.3); MEAN CORPUSCULAR HGB CONC 31.1 g/dL (31.7-36.0); MEAN CORPUSCULAR VOLUME 100.3 fL (84.0-98.0); MONOCYTES ABSOLUTE AUTO 0.35 K/uL (0.00-1.00); MONOCYTES PERCENT AUTO 9.2 % (2.0-14.0); NEUTROPHILS PERCENT AUTO 65.6 % (45.0-80.0); PLATELET COUNT,PLT 199 K/uL (150-350); RED BLOOD CELL COUNT 3.04 M/uL (4.33-5.41); RED CELL DISTRIBUTION WIDTH 14.7 % (11.2-14.1); WHITE BLOOD CELL COUNT,WBC 3.8 K/uL (4.0-10.2)
[2022-11-22 06:15] LABS: ANION GAP 9.7 meq/L (7-15); CALCIUM 8.7 mg/dL (8.5-10.1); CARBON DIOXIDE,CO2 26.3 mmol/L (21.0-32.0); CREATININE 0.88 mg/dL (0.51-1.17); EST CRCL DRUG DOSING (CG) 60.71 mL/min; POTASSIUM,K 4.1 mmol/L (3.5-5.1)
[2022-11-22 07:30] VITALS: PULSE 98
[2022-11-22 07:31] VITALS: BP 140/83
== END 2022-11-22 07:50 | disposition home or self-care (01) ==
LOC: LL.ED 03:20
DX: K92.2 Gastrointestinal hemorrhage, unspecified (principal); I25.10 Atherosclerotic heart disease of native coronary artery without angina pectoris; E78.00 Pure hypercholesterolemia, unspecified; J44.9 Chronic obstructive pulmonary disease, unspecified; E05.90 Thyrotoxicosis, unspecified without thyrotoxic crisis or storm; Z86.73 Personal history of transient ischemic attack (TIA), and cerebral infarction without residual deficits; Z87.891 Personal history of nicotine dependence; Z91.040 Latex allergy status; Z79.82 Long term (current) use of aspirin; Z79.899 Other long term (current) drug therapy
CPT/HCPCS: 36415; 80048; 85025; 99283

== ENCOUNTER 2022-12-18 16:50 | Emergency (ER) | payer BC, MEDICARE ==
[2022-12-18 17:33] LABS: BASOPHILS ABSOLUTE AUTO 0.01 K/uL (0.00-0.20); BASOPHILS PERCENT AUTO 0.1 % (0.0-2.0); EOSINOPHILS ABSOLUTE AUTO 0.04 K/uL (0.00-0.50); EOSINOPHILS PERCENT AUTO 0.6 % (0.0-5.0); HEMATOCRIT 29.3 % (39.0-49.0); HEMOGLOBIN 9.3 g/dL (13.1-16.8); LYMPHOCYTES ABSOLUTE AUTO 0.52 K/uL (0.50-3.50); LYMPHOCYTES PERCENT AUTO 7.3 % (10.0-50.0); MEAN CORPUSCULAR HEMOGLOBIN 30.6 pg (28.2-33.3); MEAN CORPUSCULAR HGB CONC 31.7 g/dL (31.7-36.0); MEAN CORPUSCULAR VOLUME 96.4 fL (84.0-98.0); MONOCYTES ABSOLUTE AUTO 0.66 K/uL (0.00-1.00); MONOCYTES PERCENT AUTO 9.3 % (2.0-14.0); NEUTROPHILS ABSOLUTE AUTO 5.88 K/uL (1.40-7.00); NEUTROPHILS PERCENT AUTO 82.7 % (45.0-80.0); PLATELET COUNT,PLT 163 K/uL (150-350); RED BLOOD CELL COUNT 3.04 M/uL (4.33-5.41); RED CELL DISTRIBUTION WIDTH 13.9 % (11.2-14.1); WHITE BLOOD CELL COUNT,WBC 7.1 K/uL (4.0-10.2)
[2022-12-18 17:51] LABS: ALANINE AMINOTRANSFERASE,ALT 11 U/L (12-78); ALBUMIN 2.6 g/dL (3.4-5.0); ALKALINE PHOSPHATASE 68 IU/L (46-116); ASPARTATE AMNIOTRANSFERASE,AST 18 U/L (15-37); BILIRUBIN TOTAL 0.7 mg/dL (0.2-1.0); BLOOD UREA NITROGEN,BUN 16 mg/dL (7-18); CALCIUM 8.1 mg/dL (8.5-10.1); CARBON DIOXIDE,CO2 29.1 mmol/L (21.0-32.0); CHLORIDE,CL 101 mmol/L (98-107); CREATININE 1.11 mg/dL (0.51-1.17); GLUCOSE RANDOM 138 mg/dL (70-99); POTASSIUM,K 3.3 mmol/L (3.5-5.1); PROTEIN TOTAL,TP 6.4 g/dL (6.4-8.2); SODIUM,NA 138 mmol/L (136-145)
[2022-12-18 17:52] LABS: ANION GAP 11.2 meq/L (7-15); ESTIMATED GFR 64 mL/min (>=60)
[2022-12-18 17:53] LABS: INR 1.3; PROTHROMBIN TIME 12.6 SEC (9.0-11.1)
[2022-12-18] MEDS ORDERED: Potassium Bicarbonate/Cit Ac 20 MEQ Effervescent Tab PO ONE (18:15)
[2022-12-18 19:13] VITALS: BP 128/79; PULSE 112
[2022-12-18] MEDS ORDERED: Vancomycin 125 MG Cap PO SCH (20:00)
== END 2022-12-18 19:15 | disposition home or self-care (01) ==
LOC: LL.ED 16:50
DX: A04.71 Enterocolitis due to Clostridium difficile, recurrent (principal); I48.91 Unspecified atrial fibrillation; I25.10 Atherosclerotic heart disease of native coronary artery without angina pectoris; E78.00 Pure hypercholesterolemia, unspecified; I10 Essential (primary) hypertension; I25.2 Old myocardial infarction; J44.9 Chronic obstructive pulmonary disease, unspecified; N40.0 Benign prostatic hyperplasia without lower urinary tract symptoms; E05.90 Thyrotoxicosis, unspecified without thyrotoxic crisis or storm; Z86.73 Personal history of transient ischemic attack (TIA), and cerebral infarction without residual deficits; Z91.040 Latex allergy status; Z79.82 Long term (current) use of aspirin; Z79.899 Other long term (current) drug therapy; Z95.1 Presence of aortocoronary bypass graft
CPT/HCPCS: 36415; 80053; 85025; 85610; 99284; A9270-GY